=== PATIENT | male | born 1960 | race African-American/Black ===

== ENCOUNTER 2022-05-21 10:41 | Emergency (ER) | payer OTHER ==
[~2022-05-21] VITALS: Ht 175.3 cm; Wt 74.7 kg
[~2022-05-21 10:41] MED LIST: PAIN325T; PERC5TAB8; PERC7.5T8
[2022-05-21 10:42] VITALS: BP 119/68
[2022-05-21 11:27] LABS: BASO % 0.7 % (0.0-1.0); EOS % 0.9 % (0.0-3.0); HEMATOCRIT 46.1 % (42.0-52.0); HEMOGLOBIN 14.9 g/dl (13.5-17.5); LYMPH # 2.2 10^3/uL (1.5-5.0); LYMPH % 50.2 % (24.0-44.0); MEAN CORPUSCULAR HEMOGLOBIN 30.9 pg (27.0-33.0); MEAN CORPUSCULAR HGB CONC 32.3 g/dl (32.0-36.5); MEAN CORPUSCULAR VOLUME 95.6 fl (80.0-96.0); MONO # 0.4 10^3/uL (0.0-0.8); MONO % 9.3 % (2.0-8.0); NEUTROPHILS # 1.7 10^3/uL (1.5-8.5); NEUTROPHILS % 38.9 % (36.0-66.0); PLATELET COUNT, AUTOMATED 208 10^3/uL (150-450); RED BLOOD COUNT 4.82 10^6/uL (4.30-6.10); WHITE BLOOD COUNT 4.4 10^3/uL (4.0-10.0)
[2022-05-21 12:02] LABS: RSV AMPLIFICATION NEGATIVE (NEGATIVE)
[2022-05-21 12:16] LABS: CK-MB VALUE MASS 5.3 NG/ML (<3.6); MB/CK RELATIVE INDEX 1.76 (< OR =4)
[2022-05-21 12:25] LABS: ALBUMIN 3.5 GM/DL (3.2-5.2); ALT/SGPT 25 U/L (12-78); BILIRUBIN,DIRECT 0.3 MG/DL (0.0-0.2); BILIRUBIN,TOTAL 0.8 MG/DL (0.2-1.0); BLOOD UREA NITROGEN 14 MG/DL (7-18); CALCIUM LEVEL 9.2 MG/DL (8.5-10.1); CARBON DIOXIDE LEVEL 29 MEQ/L (21-32); CHLORIDE LEVEL 106 MEQ/L (98-107); CREATININE FOR GFR 1.36 MG/DL (0.70-1.30); GLOMERULAR FILTRATION RATE > 60.0 (>56); GLUCOSE, FASTING 98 MG/DL (70-100); NT-PRO BNP 70 PG/ML (<125); POTASSIUM SERUM 3.9 MEQ/L (3.5-5.1); SODIUM LEVEL 140 MEQ/L (136-145); THYROID STIMULATING HORMONE 0.682 uIU/ML (0.358-3.740); THYROXINE (T4) 7.2 UG/DL (4.5-12.0); TOTAL PROTEIN 6.6 GM/DL (6.4-8.2)
== END 2022-05-21 14:16 | disposition left against medical advice (07) ==
LOC: M ED 10:41
DX: Z53.21 Procedure and treatment not carried out due to patient leaving prior to being seen by health care provider (principal)

== ENCOUNTER 2022-06-24 10:59 | Emergency (ER) | payer OTHER ==
[~2022-06-24] VITALS: Ht 175.3 cm; Wt 83.2 kg
[2022-06-24 12:17] LABS: BASO % 0.7 % (0.0-1.0); EOS # 0.1 10^3/uL (0.0-0.5); EOS % 1.4 % (0.0-3.0); HEMATOCRIT 45.6 % (42.0-52.0); HEMOGLOBIN 14.7 g/dl (13.5-17.5); LYMPH # 1.9 10^3/uL (1.5-5.0); LYMPH % 44.1 % (24.0-44.0); MEAN CORPUSCULAR HEMOGLOBIN 31.4 pg (27.0-33.0); MEAN CORPUSCULAR HGB CONC 32.2 g/dl (32.0-36.5); MEAN CORPUSCULAR VOLUME 97.4 fl (80.0-96.0); MONO # 0.5 10^3/uL (0.0-0.8); MONO % 10.3 % (2.0-8.0); NEUTROPHILS # 1.9 10^3/uL (1.5-8.5); NEUTROPHILS % 43.3 % (36.0-66.0); PLATELET COUNT, AUTOMATED 218 10^3/uL (150-450); RED BLOOD COUNT 4.68 10^6/uL (4.30-6.10); WHITE BLOOD COUNT 4.4 10^3/uL (4.0-10.0)
[2022-06-24] MEDS: COMBIVENT RESPIMAT 100-20MCG INHALER 4GM INH SCH ×3 (12:51→13:13)
[2022-06-24 12:56] LABS: ALBUMIN 3.5 GM/DL (3.2-5.2); ALT/SGPT 27 U/L (12-78); BILIRUBIN,DIRECT 0.1 MG/DL (0.0-0.2); BILIRUBIN,TOTAL 0.4 MG/DL (0.2-1.0); BLOOD UREA NITROGEN 18 MG/DL (7-18); CALCIUM LEVEL 9.1 MG/DL (8.5-10.1); CARBON DIOXIDE LEVEL 32 MEQ/L (21-32); CHLORIDE LEVEL 104 MEQ/L (98-107); CREATININE FOR GFR 0.92 MG/DL (0.70-1.30); GLOMERULAR FILTRATION RATE > 60.0 (>56); GLUCOSE, FASTING 88 MG/DL (70-100); POTASSIUM SERUM 4.3 MEQ/L (3.5-5.1); SODIUM LEVEL 139 MEQ/L (136-145); TOTAL PROTEIN 6.4 GM/DL (6.4-8.2)
[2022-06-24 13:02] LABS: CK-MB VALUE MASS 5.8 NG/ML (<3.6); MB/CK RELATIVE INDEX 2.58 (< OR =4)
[2022-06-24] MEDS ORDERED: ISOVUE-370 76% 100ML VIAL As Ordered ONE (13:09)
[2022-06-24] MEDS ORDERED: PRED10TA2 PO (14:19)
[2022-06-24] MEDS ORDERED: VENTAER INH (14:19)
[2022-06-24 14:21] VITALS: BP 139/92
== END 2022-06-24 14:37 | disposition home or self-care (01) ==
LOC: M ED 11:44
DX: J44.1 Chronic obstructive pulmonary disease with (acute) exacerbation (principal); F17.210 Nicotine dependence, cigarettes, uncomplicated; Z87.828 Personal history of other (healed) physical injury and trauma; Z98.890 Other specified postprocedural states

== ENCOUNTER → 2022-08-02 | Outpatient (REF) | payer OTHER ==
[~2022-08-02] MED LIST changes: +PRED10TA2 PO; +VENTAER INH
[2022-08-02 13:49] LABS: BASO % 0.7 % (0.0-1.0); EOS # 0.1 10^3/uL (0.0-0.5); EOS % 1.8 % (0.0-3.0); HEMATOCRIT 46.5 % (42.0-52.0); HEMOGLOBIN 14.8 g/dl (13.5-17.5); LYMPH # 1.6 10^3/uL (1.5-5.0); LYMPH % 34.8 % (24.0-44.0); MEAN CORPUSCULAR HEMOGLOBIN 30.8 pg (27.0-33.0); MEAN CORPUSCULAR HGB CONC 31.8 g/dl (32.0-36.5); MEAN CORPUSCULAR VOLUME 96.7 fl (80.0-96.0); MONO # 0.7 10^3/uL (0.0-0.8); MONO % 14.8 % (2.0-8.0); NEUTROPHILS # 2.1 10^3/uL (1.5-8.5); NEUTROPHILS % 47.7 % (36.0-66.0); PLATELET COUNT, AUTOMATED 235 10^3/uL (150-450); RED BLOOD COUNT 4.81 10^6/uL (4.30-6.10); WHITE BLOOD COUNT 4.5 10^3/uL (4.0-10.0)
[2022-08-02 14:12] LABS: HEMOGLOBIN A1c 5.2 % (4.0-6.0)
[2022-08-02 14:23] LABS: TOTAL 25(OH) VITAMIN D 10.8 NG/ML (20.0-100.0)
[2022-08-02 14:24] LABS: ALBUMIN 3.7 G/DL (3.2-5.2); ALKALINE PHOSPHATASE 95 U/L (46-116); ALT/SGPT 18 U/L (7.0-40); AST/SGOT 25 U/L (<34); BILIRUBIN,TOTAL 0.5 MG/DL (0.3-1.2); BLOOD UREA NITROGEN 10 MG/DL (9-23); CALCIUM LEVEL 9.3 MG/DL (8.5-10.1); CARBON DIOXIDE LEVEL 29 MMOL/L (20-31); CHLORIDE LEVEL 101 MMOL/L (98-107); CHOLESTEROL LEVEL 160 MG/DL (<200); CREATININE FOR GFR 0.77 MG/DL (0.70-1.30); GLOMERULAR FILTRATION RATE > 60.0 (>56); GLUCOSE, FASTING 69 MG/DL (60-100); HDL CHOLESTEROL 59.1 MG/DL (>40); LDL CHOLESTEROL 87.5 MG/DL (<100); NON-HDL-C 101 MG/DL; POTASSIUM SERUM 4.4 MMOL/L (3.5-5.1); SODIUM LEVEL 140 MMOL/L (136-145); TOTAL PROTEIN 6.4 G/DL (5.7-8.2); TRIGLYCERIDES LEVEL 67 MG/DL (<150)
== END ==
LOC: M LAB REF 12:21
PROVIDERS: ATTEND Nurse Practitioner Family
DX: R06.00 Dyspnea, unspecified (principal); Z13.228 Encounter for screening for other metabolic disorders

== ENCOUNTER 2023-01-22 06:20 | Emergency (ER) | payer OTHER ==
[~2023-01-22] VITALS: Ht 175.3 cm; Wt 84.0 kg
[~2023-01-22 06:20] MED LIST changes: +AMOX875T2 PO
[2023-01-22] MEDS ORDERED: IPRATROPIUM 0.5MG/ALBUTEROL 2.5MG INH SOL UD 3ML (DUONEB) NEB ONE ×2 (06:25→07:50)
[2023-01-22 06:26] VITALS: TEMP 97.5
[2023-01-22 07:00] LABS: BASO % 0.1 % (0.0-1.0); HEMATOCRIT 48.5 % (42.0-52.0); HEMOGLOBIN 15.6 g/dl (13.5-17.5); LYMPH # 1.8 10^3/uL (1.5-5.0); LYMPH % 12.1 % (24.0-44.0); MEAN CORPUSCULAR HEMOGLOBIN 30.9 pg (27.0-33.0); MEAN CORPUSCULAR HGB CONC 32.2 g/dl (32.0-36.5); MONO # 1.5 10^3/uL (0.0-0.8); MONO % 10.2 % (2.0-8.0); NEUTROPHILS # 11.1 10^3/uL (1.5-8.5); NEUTROPHILS % 76.4 % (36.0-66.0); PLATELET COUNT, AUTOMATED 284 10^3/uL (150-450); RED BLOOD COUNT 5.05 10^6/uL (4.30-6.10); WHITE BLOOD COUNT 14.6 10^3/uL (4.0-10.0)
[2023-01-22 07:24] LABS: ALBUMIN 3.5 G/DL (3.2-5.2); ALKALINE PHOSPHATASE 83 U/L (46-116); ALT/SGPT 43 U/L (7.0-40); AST/SGOT 38 U/L (<34); BILIRUBIN,TOTAL 0.8 MG/DL (0.3-1.2); BLOOD UREA NITROGEN 17 MG/DL (9-23); CALCIUM LEVEL 8.9 MG/DL (8.3-10.6); CARBON DIOXIDE LEVEL 35 MMOL/L (20-31); CHLORIDE LEVEL 99 MMOL/L (98-107); CREATININE FOR GFR 0.91 MG/DL (0.70-1.30); GLOMERULAR FILTRATION RATE > 60.0 (>49); GLUCOSE, FASTING 87 MG/DL (74-106); POTASSIUM SERUM 4.2 MMOL/L (3.5-5.1); SODIUM LEVEL 139 MMOL/L (136-145)
[2023-01-22] MEDS ORDERED: NYSTATIN 500,000U/5ML SUSP UDC PO STA (07:45)
[2023-01-22 08:30] VITALS: BP 148/91
[2023-01-22 08:35] VITALS: O2SAT 93
[2023-01-22] MEDS ORDERED: VENTAER INH (08:41)
[2023-01-22] MEDS ORDERED: PRED20TA PO (08:41)
[2023-01-22] MEDS ORDERED: NYST-38 PO (08:41)
[2023-01-22] MEDS ORDERED: ANOR1AER PO (08:41)
== END 2023-01-22 09:42 | disposition home or self-care (01) ==
LOC: M ED 06:20 → EDUNIT# 06:20 → EDBD 06:20 → M ED 09:42
DX: J44.1 Chronic obstructive pulmonary disease with (acute) exacerbation (principal); R93.1 Abnormal findings on diagnostic imaging of heart and coronary circulation; F17.200 Nicotine dependence, unspecified, uncomplicated

== ENCOUNTER 2023-02-15 03:36 | Emergency (ER) | payer OTHER ==
[~2023-02-15] VITALS: Ht 175.3 cm; Wt 82.9 kg
[~2023-02-15 03:36] MED LIST changes: +ANOR1AER PO; +NYST-38 PO; +PRED20TA PO
[2023-02-15 03:49] VITALS: TEMP 97.1
[2023-02-15] MEDS ORDERED: ALBUTEROL SULFATE 2.5MG/0.5ML INH NEB SOLN INH ONE (04:05)
[2023-02-15] MEDS ORDERED: IPRATROPIUM 0.5MG/ALBUTEROL 2.5MG INH SOL UD 3ML (DUONEB) NEB ONE (04:05)
[2023-02-15] MEDS ORDERED: BREO1INH PO ×2 (04:20→06:27)
[2023-02-15] MEDS ORDERED: ALBU6.7H6 INH ×2 (04:20→06:27)
[2023-02-15 04:29] LABS: BASO % 0.1 % (0.0-1.0); HEMATOCRIT 45.6 % (42.0-52.0); HEMOGLOBIN 14.9 g/dl (13.5-17.5); LYMPH # 0.9 10^3/uL (1.5-5.0); LYMPH % 8.3 % (24.0-44.0); MEAN CORPUSCULAR HEMOGLOBIN 31.3 pg (27.0-33.0); MEAN CORPUSCULAR HGB CONC 32.7 g/dl (32.0-36.5); MEAN CORPUSCULAR VOLUME 95.8 fl (80.0-96.0); MONO # 0.6 10^3/uL (0.0-0.8); MONO % 5.5 % (2.0-8.0); NEUTROPHILS # 9.6 10^3/uL (1.5-8.5); NEUTROPHILS % 85.6 % (36.0-66.0); PLATELET COUNT, AUTOMATED 308 10^3/uL (150-450); RED BLOOD COUNT 4.76 10^6/uL (4.30-6.10); WHITE BLOOD COUNT 11.3 10^3/uL (4.0-10.0)
[2023-02-15 04:44] LABS: ALBUMIN 3.3 G/DL (3.2-5.2); ALKALINE PHOSPHATASE 73 U/L (46-116); ALT/SGPT 37 U/L (7.0-40); AST/SGOT 26 U/L (<34); BILIRUBIN,DIRECT 0.1 MG/DL (<0.4); BILIRUBIN,TOTAL 0.4 MG/DL (0.3-1.2); BLOOD UREA NITROGEN 13 MG/DL (9-23); CALCIUM LEVEL 9.8 MG/DL (8.3-10.6); CARBON DIOXIDE LEVEL 34 MMOL/L (20-31); CHLORIDE LEVEL 101 MMOL/L (98-107); CK-MB VALUE MASS 5.4 NG/ML (<3.6); CREATININE FOR GFR 0.82 MG/DL (0.70-1.30); GLOMERULAR FILTRATION RATE > 60.0 (>49); GLUCOSE, FASTING 89 MG/DL (74-106); POTASSIUM SERUM 4.4 MMOL/L (3.5-5.1); SODIUM LEVEL 139 MMOL/L (136-145); TOTAL PROTEIN 5.9 G/DL (5.7-8.2)
[2023-02-15 04:45] LABS: INR 0.89; PROTHROMBIN TIME 12.2 SECONDS (12.5-14.5)
[2023-02-15 04:46] LABS: THYROID STIMULATING HORMONE 0.821 uIU/ML (0.55-4.78)
[2023-02-15 04:55] LABS: CPK CREATINE PHOSPHOKINASE 145 U/L (46-171); MB/CK RELATIVE INDEX 3.72 (< OR =4)
[2023-02-15 05:58] LABS: CK-MB VALUE MASS 6.2 NG/ML (<3.6)
[2023-02-15 06:00] VITALS: BP 116/61
[2023-02-15 06:00] LABS: MB/CK RELATIVE INDEX 4.66 (< OR =4)
[2023-02-15] MEDS ORDERED: PRED10TA2 PO (06:27)
[2023-02-15 06:30] VITALS: O2SAT 91
== END 2023-02-15 06:50 | disposition home or self-care (01) ==
LOC: M ED 03:36 → MERGE 03:36 → M ED 06:50
DX: J44.1 Chronic obstructive pulmonary disease with (acute) exacerbation (principal); F17.200 Nicotine dependence, unspecified, uncomplicated; Z79.51 Long term (current) use of inhaled steroids

== ENCOUNTER 2023-02-17 12:55 | Emergency (ER) | payer OTHER ==
[~2023-02-17] VITALS: Ht 175.3 cm; Wt 82.2 kg
[~2023-02-17 12:55] MED LIST changes: +ALBU6.7H6 INH; +BREO1INH PO
[2023-02-17 13:06] VITALS: BP 161/91; TEMP 96.9; O2SAT 97
[2023-02-17] MEDS ORDERED: AMOX875T2 (13:19)
[2023-02-17] MEDS ORDERED: predniSONE 20 MG TAB PO ONE (13:20)
[2023-02-17] MEDS ORDERED: PRED20TA PO (13:21)
[2023-02-17] MEDS ORDERED: NEBU1EAC71 MC (13:22)
[2023-02-17] MEDS ORDERED: ALB2.5NEB NEB (13:23)
[2023-02-18] MEDS ORDERED: NYST-38 PO (20:01)
== END 2023-02-17 13:50 | disposition home or self-care (01) ==
LOC: MERGE 13:14 → M ED 13:14
DX: J44.9 Chronic obstructive pulmonary disease, unspecified (principal); F17.200 Nicotine dependence, unspecified, uncomplicated
CPT/HCPCS: 99284; J7512

== ENCOUNTER 2023-02-18 16:02 | Emergency (ER) | payer OTHER ==
[~2023-02-18] VITALS: Ht 175.3 cm; Wt 81.8 kg
[~2023-02-18 16:02] MED LIST changes: +ALB2.5NEB NEB; +AMOX875T2; +NEBU1EAC71 MC
[2023-02-18] MEDS ORDERED: IPRATROPIUM 0.5MG/ALBUTEROL 2.5MG INH SOL UD 3ML (DUONEB) NEB ONE ×2 (16:45→18:20)
[2023-02-18] MEDS ORDERED: NYSTATIN 500,000U/5ML SUSP UDC SS STA (18:20)
[2023-02-18] MEDS ORDERED: NYST-38 PO (20:01)
[2023-02-18 20:19] VITALS: BP 155/78; TEMP 98.2; O2SAT 97
== END 2023-02-18 20:37 | disposition home or self-care (01) ==
LOC: EDBD 16:02 → M ED 16:02
DX: J44.9 Chronic obstructive pulmonary disease, unspecified (principal); B37.0 Candidal stomatitis

== ENCOUNTER 2023-02-26 10:32 | Emergency (ER) | payer OTHER ==
[~2023-02-26] VITALS: Ht 175.3 cm; Wt 84.1 kg
[2023-02-26 10:40] VITALS: BP 162/102; TEMP 97.8; O2SAT 96
[2023-02-26] MEDS ORDERED: dexAMETHasone 20MG/5ML VIAL IV ONE (10:40)
[2023-02-26] MEDS ORDERED: LORazepam 2 MG/ML 1ML VIAL IV STA (10:40)
[2023-02-26] MEDS: IPRATROPIUM 0.5MG/ALBUTEROL 2.5MG INH SOL UD 3ML (DUONEB) NEB SCH ×3 (11:03→11:46)
[2023-02-26 11:21] LABS: ABG HCO3 27.5 MMOL/L (22.0-26.0); ABG O2 SATURATION 89.9 % (95.0-99.0); ABG PARTIAL PRESSURE O2 59.2 mmHg (75.0-100.0); ABG STANDARD HCO3 25.2 MMOL/L. (22.0-26.0); ABG TOTAL CO2 29.1 MMOL/L (23.0-31.0)
[2023-02-26] MEDS ORDERED: PRED10TA2 PO (13:22)
== END 2023-02-26 15:01 | disposition home or self-care (01) ==
LOC: M ED 10:32 → EDBD 10:32 → M ED 15:01
DX: J44.1 Chronic obstructive pulmonary disease with (acute) exacerbation (principal); J44.9 Chronic obstructive pulmonary disease, unspecified; F17.200 Nicotine dependence, unspecified, uncomplicated
CPT/HCPCS: 36600; 82803; 94640; 99284; J1100; J2060

== ENCOUNTER 2023-03-09 00:24 | Emergency (ER) | payer OTHER ==
[~2023-03-09] VITALS: Ht 175.3 cm; Wt 85.9 kg
[2023-03-09 00:29] VITALS: BP 134/85; TEMP 98.6; O2SAT 98
== END 2023-03-09 05:56 | disposition left against medical advice (07) ==
LOC: M ED 00:24
DX: Z53.21 Procedure and treatment not carried out due to patient leaving prior to being seen by health care provider (principal)

== ENCOUNTER 2023-04-08 18:48 | Emergency (ER) | payer OTHER ==
[~2023-04-08] VITALS: Ht 175.3 cm; Wt 84.1 kg
[2023-04-08] MEDS ORDERED: IPRATROPIUM 0.5MG/ALBUTEROL 2.5MG INH SOL UD 3ML (DUONEB) NEB PRN (19:30)
[2023-04-08 19:58] VITALS: TEMP 98.4
[2023-04-08 20:02] LABS: VENOUS BASE EXCESS -2.3 (-2.0-2.0); VENOUS HCO3 25.2 MMOL/L (23.0-27.0); VENOUS O2 SATURATION 94.2 % (60.0-80.0); VENOUS PARTIAL PRESSURE CO2 53.7 mmHg (38.0-50.0); VENOUS PARTIAL PRESSURE O2 77.4 mmHg (30.0-50.0); VENOUS PH 7.289 UNITS (7.330-7.430); VENOUS STANDARD HCO3 22.5 MMOL/L; VENOUS TOTAL CO2 26.8 MMOL/L (24.0-28.0)
[2023-04-08 20:31] LABS: ALKALINE PHOSPHATASE 78 U/L (46-116); ALT/SGPT 21 U/L (7.0-40); AST/SGOT 23 U/L (<34); BILIRUBIN,DIRECT 0.2 MG/DL (<0.4); BILIRUBIN,TOTAL 0.8 MG/DL (0.3-1.2); BLOOD UREA NITROGEN 13 MG/DL (9-23); CALCIUM LEVEL 9.7 MG/DL (8.3-10.6); CARBON DIOXIDE LEVEL 26 MMOL/L (20-31); CHLORIDE LEVEL 104 MMOL/L (98-107); CK-MB VALUE MASS 6.3 NG/ML (<3.6); CREATININE FOR GFR 0.62 MG/DL (0.70-1.30); GLOMERULAR FILTRATION RATE > 60.0 (>49); GLUCOSE, FASTING 84 MG/DL (74-106); POTASSIUM SERUM 4.2 MMOL/L (3.5-5.1); SODIUM LEVEL 142 MMOL/L (136-145)
[2023-04-08 20:34] LABS: THYROID STIMULATING HORMONE 1.196 uIU/ML (0.55-4.78)
[2023-04-08 20:36] LABS: CPK CREATINE PHOSPHOKINASE 238 U/L (46-171); MB/CK RELATIVE INDEX 2.64 (< OR =4)
[2023-04-08 20:39] LABS: ABG BASE EXCESS -3.4 (-2.0-2.0); ABG HCO3 23.3 MMOL/L (22.0-26.0); ABG O2 SATURATION 99.3 % (95.0-99.0); ABG PARTIAL PRESSURE CO2 47.9 mmHg (35.0-45.0); ABG PARTIAL PRESSURE O2 211.6 mmHg (75.0-100.0); ABG STANDARD HCO3 21.7 MMOL/L. (22.0-26.0); ABG TOTAL CO2 24.8 MMOL/L (23.0-31.0); ABG pH (ARTERIAL) 7.305 UNITS (7.350-7.450)
[2023-04-08 20:56] LABS: BASO % 0.5 % (0.0-1.0); EOS % 0.1 % (0.0-3.0); HEMOGLOBIN 14.6 g/dl (13.5-17.5); LYMPH # 0.9 10^3/uL (1.5-5.0); MEAN CORPUSCULAR HEMOGLOBIN 31.1 pg (27.0-33.0); MEAN CORPUSCULAR HGB CONC 31.7 g/dl (32.0-36.5); MEAN CORPUSCULAR VOLUME 97.9 fl (80.0-96.0); MONO # 0.5 10^3/uL (0.0-0.8); MONO % 6.3 % (2.0-8.0); NEUTROPHILS # 7.1 10^3/uL (1.5-8.5); NEUTROPHILS % 82.8 % (36.0-66.0); PLATELET COUNT, AUTOMATED 306 10^3/uL (150-450); WHITE BLOOD COUNT 8.6 10^3/uL (4.0-10.0)
[2023-04-08] MEDS ORDERED: MORPHINE 2 MG/ML 1ML VIAL IV ONE (21:00)
[2023-04-08] MEDS ORDERED: ISOVUE-370 76% 100ML VIAL As Ordered ONE (21:01)
[2023-04-08 21:49] LABS: CK-MB VALUE MASS 7.6 NG/ML (<3.6)
[2023-04-08 21:50] LABS: MB/CK RELATIVE INDEX 3.14 (< OR =4)
[2023-04-08] MEDS ORDERED: HEPARIN DRIP 25,000 UNITS in IV 1 EA IV SCH (22:10)
[2023-04-08] MEDS ORDERED: ASPIRIN 81MG CHEW TABLET PO ONE (22:45)
[2023-04-08 23:35] LABS: INR 1.03; PARTIAL THROMBOPLASTIN TIME 31.5 SECONDS (24.8-34.2); PROTHROMBIN TIME 13.2 SECONDS (12.5-14.5)
[2023-04-09 00:30] VITALS: O2SAT 98
[2023-04-09 00:34] VITALS: BP 92/56
== END 2023-04-09 02:30 | disposition left against medical advice (07) ==
LOC: M ED 18:48 → EDBD 18:48 → M ED 04-09 02:30
DX: I21.4 Non-ST elevation (NSTEMI) myocardial infarction (principal); J44.9 Chronic obstructive pulmonary disease, unspecified; Z53.9 Procedure and treatment not carried out, unspecified reason; M21.372 Foot drop, left foot
CPT/HCPCS: 36600; 71045; 71275; 80048; 80076; 82550; 82553; 82803; 83605; 83880; 84443; 85025; 85610; 85730; 87040; 87486; 87581; 87633; 87798; 93005; 93041; 94640; 94760; 96365; 96366; 96375; 99285; Q9967

== ENCOUNTER 2023-04-17 09:12 | Emergency (ER) | payer OTHER ==
[~2023-04-17] VITALS: Ht 175.3 cm; Wt 84.5 kg
[2023-04-17] MEDS ORDERED: IPRATROPIUM 0.5MG/ALBUTEROL 2.5MG INH SOL UD 3ML (DUONEB) NEB ONE (09:40)
[2023-04-17 09:55] LABS: BASO % 0.8 % (0.0-1.0); EOS # 0.1 10^3/uL (0.0-0.5); EOS % 1.7 % (0.0-3.0); HEMATOCRIT 44.4 % (42.0-52.0); HEMOGLOBIN 13.9 g/dl (13.5-17.5); LYMPH # 1.3 10^3/uL (1.5-5.0); LYMPH % 26.9 % (24.0-44.0); MEAN CORPUSCULAR HEMOGLOBIN 31.2 pg (27.0-33.0); MEAN CORPUSCULAR HGB CONC 31.3 g/dl (32.0-36.5); MEAN CORPUSCULAR VOLUME 99.8 fl (80.0-96.0); MONO # 0.5 10^3/uL (0.0-0.8); MONO % 10.1 % (2.0-8.0); NEUTROPHILS # 2.9 10^3/uL (1.5-8.5); NEUTROPHILS % 60.3 % (36.0-66.0); PLATELET COUNT, AUTOMATED 241 10^3/uL (150-450); RED BLOOD COUNT 4.45 10^6/uL (4.30-6.10); WHITE BLOOD COUNT 4.8 10^3/uL (4.0-10.0)
[2023-04-17 10:05] LABS: ALBUMIN 3.7 G/DL (3.2-5.2); ALKALINE PHOSPHATASE 63 U/L (46-116); ALT/SGPT 23 U/L (7.0-40); AST/SGOT 22 U/L (<34); BILIRUBIN,DIRECT 0.3 MG/DL (<0.4); BILIRUBIN,TOTAL 0.7 MG/DL (0.3-1.2); BLOOD UREA NITROGEN 10 MG/DL (9-23); CALCIUM LEVEL 9.1 MG/DL (8.3-10.6); CARBON DIOXIDE LEVEL 29 MMOL/L (20-31); CHLORIDE LEVEL 106 MMOL/L (98-107); CREATININE FOR GFR 0.69 MG/DL (0.70-1.30); GLOMERULAR FILTRATION RATE > 60.0 (>49); GLUCOSE, FASTING 88 MG/DL (74-106); POTASSIUM SERUM 4.3 MMOL/L (3.5-5.1); SODIUM LEVEL 140 MMOL/L (136-145); TOTAL PROTEIN 6.4 G/DL (5.7-8.2)
[2023-04-17 10:09] LABS: ABG BASE EXCESS -1.9 (-2.0-2.0); ABG O2 SATURATION 95.6 % (95.0-99.0); ABG PARTIAL PRESSURE CO2 44.7 mmHg (35.0-45.0); ABG PARTIAL PRESSURE O2 77.2 mmHg (75.0-100.0); ABG STANDARD HCO3 22.9 MMOL/L. (22.0-26.0); ABG TOTAL CO2 25.3 MMOL/L (23.0-31.0); ABG pH (ARTERIAL) 7.347 UNITS (7.350-7.450)
[2023-04-17 10:32] LABS: RSV AMPLIFICATION NEGATIVE (NEGATIVE)
[2023-04-17 11:12] LABS: CK-MB VALUE MASS 6.6 NG/ML (<3.6)
[2023-04-17 11:16] VITALS: BP 159/74; TEMP 97.8; O2SAT 94
[2023-04-17 11:38] LABS: CPK CREATINE PHOSPHOKINASE 360 U/L (46-171); MB/CK RELATIVE INDEX 1.83 (< OR =4)
[2023-04-17 11:55] LABS: CK-MB VALUE MASS 7.6 NG/ML (<3.6)
[2023-04-17 11:57] LABS: MB/CK RELATIVE INDEX 2.05 (< OR =4)
[2023-04-17] MEDS ORDERED: PRED20TA PO (12:26)
[2023-04-17] MEDS ORDERED: BREO1INH PO (12:27)
[2023-04-17] MEDS ORDERED: ALBU6.7H6 INH (12:27)
== END 2023-04-17 12:47 | disposition home or self-care (01) ==
LOC: EDBD 09:12 → M ED 09:12
DX: J44.1 Chronic obstructive pulmonary disease with (acute) exacerbation (principal); I49.8 Other specified cardiac arrhythmias; J44.9 Chronic obstructive pulmonary disease, unspecified; Z87.891 Personal history of nicotine dependence; Z79.52 Long term (current) use of systemic steroids; Z79.899 Other long term (current) drug therapy

== ENCOUNTER 2023-04-28 01:27 | Emergency (ER) | payer OTHER ==
[2023-04-28] MEDS: IPRATROPIUM 0.5MG/ALBUTEROL 2.5MG INH SOL UD 3ML (DUONEB) NEB PRN ×3 (02:32→03:34)
[2023-04-28 02:35] LABS: BASO % 0.5 % (0.0-1.0); EOS # 0.1 10^3/uL (0.0-0.5); EOS % 0.7 % (0.0-3.0); HEMATOCRIT 47.3 % (42.0-52.0); HEMOGLOBIN 14.8 g/dl (13.5-17.5); LYMPH # 1.9 10^3/uL (1.5-5.0); LYMPH % 21.9 % (24.0-44.0); MEAN CORPUSCULAR HEMOGLOBIN 31.5 pg (27.0-33.0); MEAN CORPUSCULAR HGB CONC 31.3 g/dl (32.0-36.5); MEAN CORPUSCULAR VOLUME 100.6 fl (80.0-96.0); MONO # 0.9 10^3/uL (0.0-0.8); MONO % 10.5 % (2.0-8.0); NEUTROPHILS # 5.6 10^3/uL (1.5-8.5); NEUTROPHILS % 65.8 % (36.0-66.0); PLATELET COUNT, AUTOMATED 222 10^3/uL (150-450); WHITE BLOOD COUNT 8.5 10^3/uL (4.0-10.0)
[2023-04-28] MEDS ORDERED: NYSTATIN 500,000U/5ML SUSP UDC PO STA (02:51)
[2023-04-28 03:01] LABS: ALKALINE PHOSPHATASE 80 U/L (46-116); ALT/SGPT 31 U/L (7.0-40); AST/SGOT 24 U/L (<34); BILIRUBIN,DIRECT 0.2 MG/DL (<0.4); BILIRUBIN,TOTAL 0.7 MG/DL (0.3-1.2); BLOOD UREA NITROGEN 11 MG/DL (9-23); CARBON DIOXIDE LEVEL 34 MMOL/L (20-31); CHLORIDE LEVEL 100 MMOL/L (98-107); CREATININE FOR GFR 0.63 MG/DL (0.70-1.30); GLOMERULAR FILTRATION RATE > 60.0 (>49); GLUCOSE, FASTING 78 MG/DL (74-106); POTASSIUM SERUM 3.7 MMOL/L (3.5-5.1); SODIUM LEVEL 140 MMOL/L (136-145); TOTAL PROTEIN 6.9 G/DL (5.7-8.2)
[2023-04-28 03:03] LABS: THYROID STIMULATING HORMONE 1.144 uIU/ML (0.55-4.78)
[2023-04-28 03:30] VITALS: BP 142/87
[2023-04-28 03:45] VITALS: TEMP 97.6
[2023-04-28 04:00] VITALS: O2SAT 100
[2023-04-28] MEDS ORDERED: NYST-38 PO (04:01)
[2023-04-28] MEDS ORDERED: AZIT500T5 PO (04:03)
[2023-04-28] MEDS ORDERED: PRED20TA PO (04:03)
== END 2023-04-28 04:23 | disposition home or self-care (01) ==
LOC: M ED 01:27 → EDBD 01:27 → M ED 04:23
DX: J98.01 Acute bronchospasm (principal); J44.1 Chronic obstructive pulmonary disease with (acute) exacerbation; B37.0 Candidal stomatitis; I10 Essential (primary) hypertension; Z79.52 Long term (current) use of systemic steroids; Z79.2 Long term (current) use of antibiotics; Z79.899 Other long term (current) drug therapy

== ENCOUNTER 2023-05-23 07:15 | Emergency (ER) | payer OTHER ==
[~2023-05-23] VITALS: Ht 175.3 cm; Wt 88.6 kg
[~2023-05-23 07:15] MED LIST changes: +AZIT500T5 PO; -NEBU1EAC71 MC; +NEBU1EAC80 MC
[2023-05-23] MEDS ORDERED: ERGO500029 (07:31)
[2023-05-23] MEDS ORDERED: BUDE0.5S6 (07:31)
[2023-05-23 07:34] VITALS: BP 168/92; TEMP 96.8; O2SAT 98
[2023-05-23] MEDS ORDERED: BUDE0.5S6 NEB (07:52)
== END 2023-05-23 08:20 | disposition home or self-care (01) ==
LOC: M ED 07:15
DX: J44.9 Chronic obstructive pulmonary disease, unspecified (principal); F41.9 Anxiety disorder, unspecified; Z87.891 Personal history of nicotine dependence; Z79.52 Long term (current) use of systemic steroids; Z79.899 Other long term (current) drug therapy

== ENCOUNTER 2023-07-30 01:33 | Emergency (ER) | payer OTHER ==
[~2023-07-30] VITALS: Ht 175.3 cm; Wt 93.6 kg
[~2023-07-30 01:33] MED LIST changes: +BUDE0.5S6; +BUDE0.5S6 NEB; +ERGO500029
[2023-07-30 02:52] LABS: VENOUS BASE EXCESS 4.1 (-2.0-2.0); VENOUS HCO3 31.7 MMOL/L (23.0-27.0); VENOUS O2 SATURATION 87.8 % (60.0-80.0); VENOUS PARTIAL PRESSURE CO2 58.9 mmHg (38.0-50.0); VENOUS PARTIAL PRESSURE O2 55.6 mmHg (30.0-50.0); VENOUS PH 7.349 UNITS (7.330-7.430); VENOUS STANDARD HCO3 27.9 MMOL/L; VENOUS TOTAL CO2 33.5 MMOL/L (24.0-28.0)
[2023-07-30 02:55] LABS: BASO % 0.4 % (0.0-1.0); EOS # 0.1 10^3/uL (0.0-0.5); EOS % 0.9 % (0.0-3.0); HEMATOCRIT 47.2 % (42.0-52.0); HEMOGLOBIN 15.1 g/dl (13.5-17.5); LYMPH # 1.7 10^3/uL (1.5-5.0); MEAN CORPUSCULAR HEMOGLOBIN 30.8 pg (27.0-33.0); MEAN CORPUSCULAR VOLUME 96.3 fl (80.0-96.0); MONO # 0.6 10^3/uL (0.0-0.8); MONO % 7.5 % (2.0-8.0); NEUTROPHILS # 5.5 10^3/uL (1.5-8.5); NEUTROPHILS % 69.9 % (36.0-66.0); PLATELET COUNT, AUTOMATED 235 10^3/uL (150-450); WHITE BLOOD COUNT 7.8 10^3/uL (4.0-10.0)
[2023-07-30 03:16] LABS: CK-MB VALUE MASS 6.3 NG/ML (<3.6)
[2023-07-30 03:17] LABS: CPK CREATINE PHOSPHOKINASE 393 U/L (46-171)
[2023-07-30 03:18] LABS: ALBUMIN 3.4 G/DL (3.2-5.2); ALKALINE PHOSPHATASE 70 U/L (46-116); ALT/SGPT 36 U/L (7.0-40); AST/SGOT 27 U/L (<34); BILIRUBIN,DIRECT 0.2 MG/DL (<0.4); BILIRUBIN,TOTAL 0.5 MG/DL (0.3-1.2); BLOOD UREA NITROGEN 23 MG/DL (9-23); CALCIUM LEVEL 9.3 MG/DL (8.3-10.6); CARBON DIOXIDE LEVEL 30 MMOL/L (20-31); CHLORIDE LEVEL 105 MMOL/L (98-107); CREATININE FOR GFR 0.91 MG/DL (0.70-1.30); GLOMERULAR FILTRATION RATE > 60.0 (>49); GLUCOSE, FASTING 91 MG/DL (74-106); SODIUM LEVEL 143 MMOL/L (136-145)
[2023-07-30 06:36] LABS: CK-MB VALUE MASS 4.9 NG/ML (<3.6)
[2023-07-30 06:40] LABS: MB/CK RELATIVE INDEX 1.48 (< OR =4)
[2023-07-30] MEDS ORDERED: IPRATROPIUM 0.5MG/ALBUTEROL 2.5MG INH SOL UD 3ML (DUONEB) NEB ONE (07:20)
[2023-07-30] MEDS ORDERED: methylPREDNISolone 125MG 2ML VIAL IV ONE (07:20)
[2023-07-30] MEDS ORDERED: ISOVUE-370 76% 100ML VIAL As Ordered ONE (07:24)
[2023-07-30] MEDS ORDERED: PRED20TA (07:34)
[2023-07-30] MEDS ORDERED: FLUT1BLS8 (07:34)
[2023-07-30 08:59] VITALS: O2SAT 94
[2023-07-30] MEDS ORDERED: PRED20TA PO (09:10)
[2023-07-30] MEDS ORDERED: VENTAER INH (09:11)
[2023-07-30] MEDS ORDERED: ALBU2.5V10 NEB (09:12)
[2023-07-30 09:41] VITALS: BP 152/79; TEMP 96.9; O2SAT 92
== END 2023-07-30 10:02 | disposition home or self-care (01) ==
LOC: M ED 01:33
DX: J44.1 Chronic obstructive pulmonary disease with (acute) exacerbation (principal); I25.2 Old myocardial infarction; F41.9 Anxiety disorder, unspecified; Z87.891 Personal history of nicotine dependence; Z79.52 Long term (current) use of systemic steroids; Z79.899 Other long term (current) drug therapy
CPT/HCPCS: 71045; 71275; 80048; 80076; 82550; 82553; 82803; 83605; 85025; 87040; 87077; 87486; 87581; 87633; 87798; 93005; 93041; 94640; 94760; 96374; 99285; J2930; Q9967

== ENCOUNTER 2023-11-16 18:49 | Emergency (ER) | payer OTHER ==
[~2023-11-16] VITALS: Ht 175.3 cm; Wt 88.6 kg
[~2023-11-16 18:49] MED LIST changes: +ALBU2.5V10 NEB; +FLUT1BLS8; +PRED20TA
[2023-11-16] MEDS ORDERED: COMBAER6 (18:58)
[2023-11-16] MEDS ORDERED: BUDE0.254 (18:58)
[2023-11-16] MEDS ORDERED: VITA1CAP25 (18:58)
[2023-11-16 18:59] VITALS: TEMP 96.7
[2023-11-16 19:36] LABS: VENOUS BASE EXCESS -0.4 (-2.0-2.0); VENOUS HCO3 28.1 MMOL/L (23.0-27.0); VENOUS O2 SATURATION 82.9 % (60.0-80.0); VENOUS PARTIAL PRESSURE CO2 61.4 mmHg (38.0-50.0); VENOUS PARTIAL PRESSURE O2 49.3 mmHg (30.0-50.0); VENOUS PH 7.279 UNITS (7.330-7.430); VENOUS STANDARD HCO3 23.8 MMOL/L
[2023-11-16 19:39] LABS: BASO % 0.5 % (0.0-1.0); EOS # 0.1 10^3/uL (0.0-0.5); EOS % 1.1 % (0.0-3.0); HEMATOCRIT 49.2 % (42.0-52.0); HEMOGLOBIN 15.8 g/dl (13.5-17.5); LYMPH # 1.1 10^3/uL (1.5-5.0); LYMPH % 19.7 % (24.0-44.0); MEAN CORPUSCULAR HEMOGLOBIN 31.3 pg (27.0-33.0); MEAN CORPUSCULAR HGB CONC 32.1 g/dl (32.0-36.5); MEAN CORPUSCULAR VOLUME 97.4 fl (80.0-96.0); MONO # 0.5 10^3/uL (0.0-0.8); MONO % 9.1 % (2.0-8.0); NEUTROPHILS # 3.8 10^3/uL (1.5-8.5); NEUTROPHILS % 69.4 % (36.0-66.0); PLATELET COUNT, AUTOMATED 241 10^3/uL (150-450); RED BLOOD COUNT 5.05 10^6/uL (4.30-6.10); WHITE BLOOD COUNT 5.5 10^3/uL (4.0-10.0)
[2023-11-16 20:12] LABS: ALKALINE PHOSPHATASE 95 U/L (46-116); ALT/SGPT 39 U/L (7.0-40); AST/SGOT 41 U/L (<34); BILIRUBIN,DIRECT 0.2 MG/DL (<0.4); BILIRUBIN,TOTAL 0.5 MG/DL (0.3-1.2); BLOOD UREA NITROGEN 10 MG/DL (9-23); CALCIUM LEVEL 9.5 MG/DL (8.3-10.6); CARBON DIOXIDE LEVEL 29 MMOL/L (20-31); CHLORIDE LEVEL 104 MMOL/L (98-107); CK-MB VALUE MASS 12.6 NG/ML (<3.6); CREATININE FOR GFR 0.81 MG/DL (0.70-1.30); GLOMERULAR FILTRATION RATE > 60.0 (>49); GLUCOSE, FASTING 98 MG/DL (74-106); POTASSIUM SERUM 4.2 MMOL/L (3.5-5.1); SODIUM LEVEL 137 MMOL/L (136-145)
[2023-11-16 20:20] LABS: CPK CREATINE PHOSPHOKINASE 811 U/L (46-171); MB/CK RELATIVE INDEX 1.55 (< OR =4)
[2023-11-16 21:00] VITALS: BP 122/82; O2SAT 95
[2023-11-16 21:12] LABS: CK-MB VALUE MASS 11.2 NG/ML (<3.6)
[2023-11-16 21:16] LABS: MB/CK RELATIVE INDEX 1.59 (< OR =4)
[2023-11-16 21:28] LABS: ABG BASE EXCESS 0.8 (-2.0-2.0); ABG HCO3 27.3 MMOL/L (22.0-26.0); ABG O2 SATURATION 92.9 % (95.0-99.0); ABG PARTIAL PRESSURE CO2 50.3 mmHg (35.0-45.0); ABG PARTIAL PRESSURE O2 65.6 mmHg (75.0-100.0); ABG STANDARD HCO3 25.1 MMOL/L. (22.0-26.0); ABG TOTAL CO2 28.9 MMOL/L (23.0-31.0); ABG pH (ARTERIAL) 7.353 UNITS (7.350-7.450)
[2023-11-16] MEDS ORDERED: COMBAER6 INH (21:58)
[2023-11-16] MEDS ORDERED: BUDE0.254 INH (21:58)
[2023-11-16] MEDS ORDERED: VENTAER INH (21:58)
[2023-11-16] MEDS ORDERED: FLUT1BLS8 INH (21:58)
== END 2023-11-16 22:16 | disposition home or self-care (01) ==
LOC: M ED 18:49
DX: J44.1 Chronic obstructive pulmonary disease with (acute) exacerbation (principal); Z87.891 Personal history of nicotine dependence; Z79.52 Long term (current) use of systemic steroids; Z79.899 Other long term (current) drug therapy

== ENCOUNTER 2023-11-18 12:56 | Emergency (ER) | payer OTHER ==
[~2023-11-18] VITALS: Ht 180.3 cm; Wt 88.6 kg
[~2023-11-18 12:56] MED LIST changes: +BUDE0.254; +BUDE0.254 INH; +COMBAER6; +COMBAER6 INH; +FLUT1BLS8 INH; +VITA1CAP25
[2023-11-18 13:34] LABS: BASO % 0.3 % (0.0-1.0); EOS % 0.4 % (0.0-3.0); HEMATOCRIT 47.8 % (42.0-52.0); HEMOGLOBIN 15.3 g/dl (13.5-17.5); LYMPH # 2.3 10^3/uL (1.5-5.0); LYMPH % 29.4 % (24.0-44.0); MEAN CORPUSCULAR HEMOGLOBIN 31.4 pg (27.0-33.0); MONO # 0.8 10^3/uL (0.0-0.8); MONO % 10.6 % (2.0-8.0); NEUTROPHILS # 4.6 10^3/uL (1.5-8.5); PLATELET COUNT, AUTOMATED 259 10^3/uL (150-450); RED BLOOD COUNT 4.88 10^6/uL (4.30-6.10); WHITE BLOOD COUNT 7.9 10^3/uL (4.0-10.0)
[2023-11-18 13:41] LABS: ABG BASE EXCESS -1.6 (-2.0-2.0); ABG HCO3 25.1 MMOL/L (22.0-26.0); ABG O2 SATURATION 93.2 % (95.0-99.0); ABG PARTIAL PRESSURE CO2 49.8 mmHg (35.0-45.0); ABG PARTIAL PRESSURE O2 70.3 mmHg (75.0-100.0); ABG TOTAL CO2 26.7 MMOL/L (23.0-31.0); ABG pH (ARTERIAL) 7.321 UNITS (7.350-7.450)
[2023-11-18] MEDS: IPRATROPIUM 0.5MG/ALBUTEROL 2.5MG INH SOL UD 3ML (DUONEB) NEB ONE (13:43)
[2023-11-18 14:19] LABS: ALBUMIN 3.9 G/DL (3.2-5.2); ALKALINE PHOSPHATASE 76 U/L (46-116); ALT/SGPT 38 U/L (7.0-40); AST/SGOT 79 U/L (<34); BILIRUBIN,DIRECT 0.1 MG/DL (<0.4); BILIRUBIN,TOTAL 0.5 MG/DL (0.3-1.2); BLOOD UREA NITROGEN 10 MG/DL (9-23); CALCIUM LEVEL 9.5 MG/DL (8.3-10.6); CARBON DIOXIDE LEVEL 34 MMOL/L (20-31); CHLORIDE LEVEL 106 MMOL/L (98-107); CK-MB VALUE MASS 10.7 NG/ML (<3.6); CPK CREATINE PHOSPHOKINASE 671 U/L (46-171); CREATININE FOR GFR 0.85 MG/DL (0.70-1.30); GLOMERULAR FILTRATION RATE > 60.0 (>49); GLUCOSE, FASTING 101 MG/DL (74-106); MB/CK RELATIVE INDEX 1.59 (< OR =4); POTASSIUM SERUM 5.5 MMOL/L (3.5-5.1); SODIUM LEVEL 141 MMOL/L (136-145)
[2023-11-18 15:32] LABS: ABG BASE EXCESS 0.2 (-2.0-2.0); ABG HCO3 26.1 MMOL/L (22.0-26.0); ABG O2 SATURATION 92.7 % (95.0-99.0); ABG PARTIAL PRESSURE CO2 46.8 mmHg (35.0-45.0); ABG STANDARD HCO3 24.5 MMOL/L. (22.0-26.0); ABG TOTAL CO2 27.5 MMOL/L (23.0-31.0); ABG pH (ARTERIAL) 7.364 UNITS (7.350-7.450)
[2023-11-18] MEDS ORDERED: PRED10TA2 PO (15:48)
[2023-11-18 16:00] VITALS: BP 132/73; TEMP 99.8; O2SAT 90
[2023-11-19] MEDS ORDERED: PRED20TA PO (12:28)
== END 2023-11-18 16:14 | disposition home or self-care (01) ==
LOC: M ED 12:56 → EDBD 12:56 → M ED 16:14
DX: J44.1 Chronic obstructive pulmonary disease with (acute) exacerbation (principal); Z87.891 Personal history of nicotine dependence; Z79.899 Other long term (current) drug therapy

== ENCOUNTER 2023-11-18 22:02 | Observation (INO) | payer OTHER ==
[~2023-11-18] VITALS: Ht 177.8 cm; Wt 88.6 kg
[2023-11-18 23:01] LABS: BASO % 0.1 % (0.0-1.0); HEMATOCRIT 46.9 % (42.0-52.0); LYMPH # 0.5 10^3/uL (1.5-5.0); LYMPH % 6.2 % (24.0-44.0); MEAN CORPUSCULAR HEMOGLOBIN 31.1 pg (27.0-33.0); MEAN CORPUSCULAR VOLUME 97.1 fl (80.0-96.0); MONO # 0.4 10^3/uL (0.0-0.8); MONO % 5.2 % (2.0-8.0); NEUTROPHILS # 6.8 10^3/uL (1.5-8.5); NEUTROPHILS % 88.2 % (36.0-66.0); PLATELET COUNT, AUTOMATED 231 10^3/uL (150-450); RED BLOOD COUNT 4.83 10^6/uL (4.30-6.10); WHITE BLOOD COUNT 7.7 10^3/uL (4.0-10.0)
[2023-11-18] MEDS: IPRATROPIUM 0.5MG/ALBUTEROL 2.5MG INH SOL UD 3ML (DUONEB) NEB ONE (23:05)
[2023-11-18 23:28] LABS: ALBUMIN 4.1 G/DL (3.2-5.2); ALKALINE PHOSPHATASE 86 U/L (46-116); ALT/SGPT 37 U/L (7.0-40); AST/SGOT 29 U/L (<34); BILIRUBIN,DIRECT 0.2 MG/DL (<0.4); BILIRUBIN,TOTAL 0.5 MG/DL (0.3-1.2); BLOOD UREA NITROGEN 9 MG/DL (9-23); CALCIUM LEVEL 9.6 MG/DL (8.3-10.6); CARBON DIOXIDE LEVEL 30 MMOL/L (20-31); CHLORIDE LEVEL 104 MMOL/L (98-107); CREATININE FOR GFR 0.72 MG/DL (0.70-1.30); GLOMERULAR FILTRATION RATE > 60.0 (>49); GLUCOSE, FASTING 123 MG/DL (74-106); POTASSIUM SERUM 3.8 MMOL/L (3.5-5.1); SODIUM LEVEL 143 MMOL/L (136-145); TOTAL PROTEIN 6.8 G/DL (5.7-8.2)
[2023-11-18 23:33] LABS: RSV AMPLIFICATION NEGATIVE (NEGATIVE)
[2023-11-19] MEDS ORDERED: MED REC CURRENTLY UNOBTAINABLE XX SCH (00:10)
[2023-11-19] MEDS ORDERED: MAALOX 30 ML SUSP *UDC PO PRN (00:50)
[2023-11-19] MEDS ORDERED: ACETAMINOPHEN TAB 650MG DOSE (2X325MG) PO PRN (00:50)
[2023-11-19] MEDS: AZITHROMYCIN 250MG TABLET PO SCH (01:05)
[2023-11-19] MEDS: guaiFENesin ER TABLET 600 MG TAB PO SCH (01:05)
[2023-11-19] MEDS: methylPREDNISolone 40MG 1ML VIAL IV SCH (01:05)
[2023-11-19] MEDS: IPRATROPIUM 0.5MG/ALBUTEROL 2.5MG INH SOL UD 3ML (DUONEB) NEB SCH (03:12)
[2023-11-19] MEDS: ENOXAPARIN 40MG/0.4ML SYRINGE (J1650 PER 10MG) SC SCH (08:26)
[2023-11-19] MEDS: PANTOPRAZOLE 40MG TAB (PROTONIX) PO SCH (08:27)
[2023-11-19 08:45] LABS: PROCALCITONIN <0.04 ng/ml
[2023-11-19 08:48] LABS: ALBUMIN 3.8 G/DL (3.2-5.2); ALKALINE PHOSPHATASE 81 U/L (46-116); ALT/SGPT 34 U/L (7.0-40); AST/SGOT 26 U/L (<34); BILIRUBIN,TOTAL 0.8 MG/DL (0.3-1.2); BLOOD UREA NITROGEN 8 MG/DL (9-23); CALCIUM LEVEL 9.9 MG/DL (8.3-10.6); CARBON DIOXIDE LEVEL 30 MMOL/L (20-31); CHLORIDE LEVEL 103 MMOL/L (98-107); CREATININE FOR GFR 0.63 MG/DL (0.70-1.30); GLOMERULAR FILTRATION RATE > 60.0 (>49); GLUCOSE, FASTING 107 MG/DL (74-106); POTASSIUM SERUM 4.1 MMOL/L (3.5-5.1); SODIUM LEVEL 141 MMOL/L (136-145); TOTAL PROTEIN 6.5 G/DL (5.7-8.2)
[2023-11-19] MEDS ORDERED: PRED20TA PO (12:28)
[2023-11-19 13:35] VITALS: BP 171/77; TEMP 98.3; O2SAT 96
[2023-11-19] MEDS ORDERED: methylPREDNISolone 125MG 2ML VIAL IV SCH (14:00)
== END 2023-11-19 13:36 | disposition home or self-care (01) ==
LOC: M ED 22:02 → EDBD 22:02 → M ED INP 11-19 00:48
PROVIDERS: ADMIT Preventive Medicine Undersea and Hyperbaric Medicine; ATTEND Preventive Medicine Undersea and Hyperbaric Medicine
DX: J44.1 Chronic obstructive pulmonary disease with (acute) exacerbation (principal); E55.9 Vitamin D deficiency, unspecified; Z87.891 Personal history of nicotine dependence
CPT/HCPCS: 71045; 80048; 80053; 80076; 83880; 84145; 85025; 87631; 93005; 93041; 94640; 94760; 96372; 96374; 99285; J1650; J2919

== ENCOUNTER 2023-12-11 01:59 | Emergency (ER) | payer OTHER ==
[~2023-12-11] VITALS: Ht 175.3 cm; Wt 89.0 kg
[~2023-12-11 01:59] MED LIST changes: -VITA1CAP25; +VITA1CAP25 PO
[2023-12-11] MEDS: KETOROLAC 30 MG/ML 1ML VIAL IV ONE (02:23)
[2023-12-11 03:15] LABS: VENOUS BASE EXCESS -0.6 (-2.0-2.0); VENOUS HCO3 24.9 MMOL/L (23.0-27.0); VENOUS O2 SATURATION 90.8 % (60.0-80.0); VENOUS PARTIAL PRESSURE CO2 43.7 mmHg (38.0-50.0); VENOUS PARTIAL PRESSURE O2 60.8 mmHg (30.0-50.0); VENOUS PH 7.373 UNITS (7.330-7.430); VENOUS STANDARD HCO3 23.8 MMOL/L; VENOUS TOTAL CO2 26.2 MMOL/L (24.0-28.0)
[2023-12-11 03:24] LABS: BASO % 0.5 % (0.0-1.0); EOS # 0.1 10^3/uL (0.0-0.5); EOS % 1.3 % (0.0-3.0); HEMATOCRIT 46.6 % (42.0-52.0); HEMOGLOBIN 15.2 g/dl (13.5-17.5); LYMPH # 1.2 10^3/uL (1.5-5.0); LYMPH % 19.9 % (24.0-44.0); MEAN CORPUSCULAR HGB CONC 32.6 g/dl (32.0-36.5); MEAN CORPUSCULAR VOLUME 94.9 fl (80.0-96.0); MONO # 0.3 10^3/uL (0.0-0.8); MONO % 5.2 % (2.0-8.0); NEUTROPHILS # 4.5 10^3/uL (1.5-8.5); NEUTROPHILS % 72.9 % (36.0-66.0); PLATELET COUNT, AUTOMATED 248 10^3/uL (150-450); RED BLOOD COUNT 4.91 10^6/uL (4.30-6.10); WHITE BLOOD COUNT 6.1 10^3/uL (4.0-10.0)
[2023-12-11] MEDS: IPRATROPIUM 0.5MG/ALBUTEROL 2.5MG INH SOL UD 3ML (DUONEB) NEB ONE (03:40)
[2023-12-11 03:43] LABS: CK-MB VALUE MASS 7.6 NG/ML (<3.6)
[2023-12-11 03:44] LABS: CPK CREATINE PHOSPHOKINASE 376 U/L (46-171); MB/CK RELATIVE INDEX 2.02 (< OR =4)
[2023-12-11 03:45] LABS: ALBUMIN 3.9 G/DL (3.2-5.2); ALKALINE PHOSPHATASE 81 U/L (46-116); ALT/SGPT 32 U/L (7.0-40); AST/SGOT 24 U/L (<34); BILIRUBIN,DIRECT 0.2 MG/DL (<0.4); BILIRUBIN,TOTAL 0.6 MG/DL (0.3-1.2); BLOOD UREA NITROGEN 23 MG/DL (9-23); CALCIUM LEVEL 9.5 MG/DL (8.3-10.6); CARBON DIOXIDE LEVEL 26 MMOL/L (20-31); CHLORIDE LEVEL 105 MMOL/L (98-107); CREATININE FOR GFR 1.11 MG/DL (0.70-1.30); GLOMERULAR FILTRATION RATE > 60.0 (>49); GLUCOSE, FASTING 102 MG/DL (74-106); POTASSIUM SERUM 4.2 MMOL/L (3.5-5.1); SODIUM LEVEL 140 MMOL/L (136-145); TOTAL PROTEIN 6.6 G/DL (5.7-8.2)
[2023-12-11] MEDS: BENZONATATE 100MG CAPSULE PO ONE (05:08)
[2023-12-11 05:19] LABS: MB/CK RELATIVE INDEX 2.06 (< OR =4)
[2023-12-11] MEDS ORDERED: PRED10TA2 (06:11)
[2023-12-11] MEDS ORDERED: IBUP200C25 PO (06:20)
[2023-12-11] MEDS ORDERED: NYST-38 PO (06:20)
[2023-12-11] MEDS ORDERED: PRED20TA PO (06:46)
[2023-12-11] MEDS ORDERED: FLUT1BLS8 INH (06:46)
[2023-12-11] MEDS ORDERED: BUDE0.254 NEB (06:46)
[2023-12-11] MEDS ORDERED: ALBU2.5V10 NEB (06:46)
[2023-12-11 07:25] VITALS: BP 132/87; TEMP 98.1; O2SAT 96
== END 2023-12-11 07:28 | disposition home or self-care (01) ==
LOC: EDBD 01:59 → M ED 01:59
DX: J44.9 Chronic obstructive pulmonary disease, unspecified (principal); Z91.199 Patient's noncompliance with other medical treatment and regimen due to unspecified reason; Z87.891 Personal history of nicotine dependence; Z79.51 Long term (current) use of inhaled steroids; Z79.899 Other long term (current) drug therapy
CPT/HCPCS: 71045; 80048; 80076; 82550; 82553; 82803; 83605; 83880; 84484; 85025; 87040; 87486; 87581; 87633; 87798; 93005; 93041; 94640; 94760; 96374; 99285; J1885

== ENCOUNTER 2023-12-21 23:43 | Emergency (ER) | payer OTHER ==
[~2023-12-21] VITALS: Ht 175.3 cm; Wt 88.6 kg
[~2023-12-21 23:43] MED LIST changes: +BUDE0.254 NEB; +IBUP200C25 PO; +PRED10TA2
[2023-12-21 23:55] VITALS: BP 139/95; TEMP 98.3; O2SAT 94
[2023-12-22] MEDS ORDERED: NYST-38 PO (00:26)
[2023-12-22] MEDS: NYSTATIN 500,000U/5ML SUSP UDC SS ONE (00:34)
== END 2023-12-22 00:44 | disposition home or self-care (01) ==
LOC: M ED 23:43
DX: J44.9 Chronic obstructive pulmonary disease, unspecified (principal); F41.9 Anxiety disorder, unspecified; B37.0 Candidal stomatitis; Z87.891 Personal history of nicotine dependence; Z79.51 Long term (current) use of inhaled steroids; Z79.1 Long term (current) use of non-steroidal anti-inflammatories (NSAID); Z79.52 Long term (current) use of systemic steroids; Z79.899 Other long term (current) drug therapy

== ENCOUNTER → 2023-12-27 | Outpatient (REF) | payer OTHER ==
[~2023-12-27] MED LIST changes: +CLOT10TR; +CLOT10TR PO
[2023-12-27 18:25] LABS: BASO % 0.3 % (0.0-1.0); EOS # 0.1 10^3/uL (0.0-0.5); EOS % 0.7 % (0.0-3.0); HEMATOCRIT 46.4 % (42.0-52.0); HEMOGLOBIN 14.8 g/dl (13.5-17.5); LYMPH # 1.8 10^3/uL (1.5-5.0); LYMPH % 26.3 % (24.0-44.0); MEAN CORPUSCULAR HEMOGLOBIN 31.4 pg (27.0-33.0); MEAN CORPUSCULAR HGB CONC 31.9 g/dl (32.0-36.5); MEAN CORPUSCULAR VOLUME 98.5 fl (80.0-96.0); MONO # 0.7 10^3/uL (0.0-0.8); MONO % 9.7 % (2.0-8.0); NEUTROPHILS # 4.2 10^3/uL (1.5-8.5); NEUTROPHILS % 62.1 % (36.0-66.0); PLATELET COUNT, AUTOMATED 215 10^3/uL (150-450); RED BLOOD COUNT 4.71 10^6/uL (4.30-6.10); WHITE BLOOD COUNT 6.8 10^3/uL (4.0-10.0)
[2023-12-27 18:30] LABS: PSA SCREENING 0.86 NG/ML (< 4.00)
[2023-12-27 18:35] LABS: ALBUMIN 3.4 G/DL (3.2-5.2); ALKALINE PHOSPHATASE 83 U/L (46-116); ALT/SGPT 41 U/L (7.0-40); AST/SGOT 30 U/L (<34); BILIRUBIN,TOTAL 0.5 MG/DL (0.3-1.2); BLOOD UREA NITROGEN 16 MG/DL (9-23); CALCIUM LEVEL 9.4 MG/DL (8.3-10.6); CARBON DIOXIDE LEVEL 32 MMOL/L (20-31); CHLORIDE LEVEL 103 MMOL/L (98-107); CHOLESTEROL LEVEL 214 MG/DL (<200); CHOLESTEROL RISK RATIO 2.84 (<5); CREATININE FOR GFR 0.88 MG/DL (0.70-1.30); GLOMERULAR FILTRATION RATE > 60.0 (>49); GLUCOSE, FASTING 74 MG/DL (74-106); HDL CHOLESTEROL 75.3 MG/DL (>40); LDL CHOLESTEROL 124.9 MG/DL (<100); NON-HDL-C 138.7 MG/DL; POTASSIUM SERUM 4.7 MMOL/L (3.5-5.1); SODIUM LEVEL 141 MMOL/L (136-145); THYROID STIMULATING HORMONE 1.408 uIU/ML (0.55-4.78); TOTAL PROTEIN 6.1 G/DL (5.7-8.2); TRIGLYCERIDES LEVEL 69 MG/DL (<150)
[2023-12-27 18:46] LABS: HEMOGLOBIN A1c 5.4 % (4.0-6.0)
== END ==
LOC: M LAB REF 17:41
PROVIDERS: ATTEND Nurse Practitioner Family
DX: R53.83 Other fatigue (principal); R03.0 Elevated blood-pressure reading, without diagnosis of hypertension; R39.9 Unspecified symptoms and signs involving the genitourinary system; E66.3 Overweight

== ENCOUNTER 2023-12-29 14:02 | Emergency (ER) | payer OTHER ==
[~2023-12-29] VITALS: Ht 175.3 cm; Wt 88.6 kg
[~2023-12-29 14:02] MED LIST changes: -CLOT10TR; -CLOT10TR PO
[2023-12-29] MEDS ORDERED: CLOT10TR (14:14)
[2023-12-29 15:11] LABS: THYROID STIMULATING HORMONE 1.063 uIU/ML (0.55-4.78); THYROXINE (T4) 7.6 UG/DL (4.5-10.9)
[2023-12-29 15:16] LABS: ALBUMIN 3.3 G/DL (3.2-5.2); ALKALINE PHOSPHATASE 77 U/L (46-116); ALT/SGPT 36 U/L (7.0-40); AST/SGOT 28 U/L (<34); BILIRUBIN,DIRECT 0.1 MG/DL (<0.4); BILIRUBIN,TOTAL 0.4 MG/DL (0.3-1.2); BLOOD UREA NITROGEN 25 MG/DL (9-23); CALCIUM LEVEL 9.3 MG/DL (8.3-10.6); CARBON DIOXIDE LEVEL 28 MMOL/L (20-31); CHLORIDE LEVEL 109 MMOL/L (98-107); CREATININE FOR GFR 0.84 MG/DL (0.70-1.30); GLOMERULAR FILTRATION RATE > 60.0 (>49); GLUCOSE, FASTING 104 MG/DL (74-106); POTASSIUM SERUM 4.3 MMOL/L (3.5-5.1); SODIUM LEVEL 142 MMOL/L (136-145); TOTAL PROTEIN 5.9 G/DL (5.7-8.2)
[2023-12-29 15:35] LABS: BASO % 0.3 % (0.0-1.0); EOS % 0.5 % (0.0-3.0); HEMATOCRIT 44.1 % (42.0-52.0); HEMOGLOBIN 14.1 g/dl (13.5-17.5); LYMPH % 13.3 % (24.0-44.0); MEAN CORPUSCULAR HEMOGLOBIN 31.3 pg (27.0-33.0); MEAN CORPUSCULAR VOLUME 97.8 fl (80.0-96.0); MONO # 0.3 10^3/uL (0.0-0.8); MONO % 4.4 % (2.0-8.0); NEUTROPHILS # 6.2 10^3/uL (1.5-8.5); PLATELET COUNT, AUTOMATED 176 10^3/uL (150-450); RED BLOOD COUNT 4.51 10^6/uL (4.30-6.10); WHITE BLOOD COUNT 7.7 10^3/uL (4.0-10.0)
[2023-12-29] MEDS: NYSTATIN 500,000U/5ML SUSP UDC PO ONE (17:30)
[2023-12-29] MEDS ORDERED: CLOT10TR PO (17:30)
[2023-12-29] MEDS: IPRATROPIUM 0.5MG/ALBUTEROL 2.5MG INH SOL UD 3ML (DUONEB) NEB ONE (17:30)
[2023-12-29] MEDS ORDERED: PRED10TA2 PO (17:30)
[2023-12-29 17:36] VITALS: BP 154/95; TEMP 96.1; O2SAT 89
== END 2023-12-29 18:18 | disposition home or self-care (01) ==
LOC: M ED 14:02
DX: J44.1 Chronic obstructive pulmonary disease with (acute) exacerbation (principal); B37.0 Candidal stomatitis

== ENCOUNTER 2024-01-16 09:53 | Emergency (ER) | payer OTHER ==
[~2024-01-16] VITALS: Ht 175.3 cm; Wt 94.4 kg
[~2024-01-16 09:53] MED LIST changes: +CLOT10TR; +CLOT10TR PO
[2024-01-16 10:31] LABS: BASO % 0.4 % (0.0-1.0); EOS # 0.1 10^3/uL (0.0-0.5); EOS % 0.9 % (0.0-3.0); HEMATOCRIT 45.9 % (42.0-52.0); HEMOGLOBIN 15.3 g/dl (13.5-17.5); LYMPH # 1.9 10^3/uL (1.5-5.0); LYMPH % 33.6 % (24.0-44.0); MEAN CORPUSCULAR HEMOGLOBIN 31.3 pg (27.0-33.0); MEAN CORPUSCULAR HGB CONC 33.3 g/dl (32.0-36.5); MEAN CORPUSCULAR VOLUME 93.9 fl (80.0-96.0); MONO # 0.6 10^3/uL (0.0-0.8); MONO % 11.2 % (2.0-8.0); NEUTROPHILS % 53.7 % (36.0-66.0); PLATELET COUNT, AUTOMATED 271 10^3/uL (150-450); RED BLOOD COUNT 4.89 10^6/uL (4.30-6.10); WHITE BLOOD COUNT 5.5 10^3/uL (4.0-10.0)
[2024-01-16 10:57] LABS: CPK CREATINE PHOSPHOKINASE 317 U/L (46-171)
[2024-01-16 10:58] LABS: ALBUMIN 3.4 G/DL (3.2-5.2); ALKALINE PHOSPHATASE 81 U/L (46-116); ALT/SGPT 32 U/L (7.0-40); AST/SGOT 31 U/L (<34); BILIRUBIN,DIRECT 0.1 MG/DL (<0.4); BILIRUBIN,TOTAL 0.4 MG/DL (0.3-1.2); BLOOD UREA NITROGEN 13 MG/DL (9-23); CALCIUM LEVEL 9.8 MG/DL (8.3-10.6); CARBON DIOXIDE LEVEL 31 MMOL/L (20-31); CHLORIDE LEVEL 97 MMOL/L (98-107); CK-MB VALUE MASS 11.9 NG/ML (<3.6); CREATININE FOR GFR 0.96 MG/DL (0.70-1.30); GLOMERULAR FILTRATION RATE > 60.0 (>49); GLUCOSE, FASTING 124 MG/DL (74-106); MB/CK RELATIVE INDEX 3.75 (< OR =4); POTASSIUM SERUM 4.1 MMOL/L (3.5-5.1); SODIUM LEVEL 132 MMOL/L (136-145); TOTAL PROTEIN 6.1 G/DL (5.7-8.2)
[2024-01-16 11:00] LABS: ETHYL ALCOHOL (ETHANOL) < 0.003 % (0.000-0.010)
[2024-01-16 11:02] LABS: SALICYLATE LEVEL < 3.0 MG/DL (<30)
[2024-01-16 11:05] LABS: THYROID STIMULATING HORMONE 1.345 uIU/ML (0.55-4.78)
[2024-01-16] MEDS: IPRATROPIUM 0.5MG/ALBUTEROL 2.5MG INH SOL UD 3ML (DUONEB) NEB ONE (11:27)
[2024-01-16] MEDS: ALBUTEROL SULFATE 2.5MG/0.5ML INH NEB SOLN INH ONE (11:27)
[2024-01-16] MEDS ORDERED: ISOVUE-370 76% 100ML VIAL As Ordered ONE (11:50)
[2024-01-16 12:19] LABS: AMPHETAMINES LEVEL URINE NEGATIVE (NEGATIVE); BARBITURATES URINE NEGATIVE (NEGATIVE); BENZODIAZEPINES URINE NEGATIVE (NEGATIVE); CANNABINOIDS URINE NEGATIVE (NEGATIVE); METHADONE URINE NEGATIVE (NEGATIVE); OPIATES URINE NEGATIVE (NEGATIVE); PHENCYCLIDINE URINE NEGATIVE (NEGATIVE)
[2024-01-16 12:24] LABS: CK-MB VALUE MASS 11.7 NG/ML (<3.6)
[2024-01-16 12:26] LABS: MB/CK RELATIVE INDEX 3.58 (< OR =4)
[2024-01-16 12:28] LABS: COCAINE METABOLITE URINE POSITIVE (NEGATIVE)
[2024-01-16] MEDS: NS 1,000 ML IV ONE (13:36)
[2024-01-16 14:06] LABS: CK-MB VALUE MASS 10.6 NG/ML (<3.6)
[2024-01-16 14:07] LABS: MB/CK RELATIVE INDEX 3.55 (< OR =4)
[2024-01-16] MEDS ORDERED: BUDE0.5S6 INH (14:42)
[2024-01-16] MEDS ORDERED: ALB2.5NEB INH ×2 (14:42)
[2024-01-16] MEDS ORDERED: VENTAER INH ×2 (14:44→15:45)
[2024-01-16] MEDS ORDERED: FLUT1BLS8 INH (14:46)
[2024-01-16] MEDS ORDERED: COMBAER6 INH (14:49)
[2024-01-16] MEDS ORDERED: HOME MED LIST COMPLETE! XX SCH (14:50)
[2024-01-16 16:20] VITALS: BP 156/65; TEMP 96.9; O2SAT 97
== END 2024-01-16 16:40 | disposition home or self-care (01) ==
LOC: EDBD 09:53 → M ED 09:53
DX: F19.10 Other psychoactive substance abuse, uncomplicated (principal); R07.9 Chest pain, unspecified; J44.1 Chronic obstructive pulmonary disease with (acute) exacerbation; F17.200 Nicotine dependence, unspecified, uncomplicated
CPT/HCPCS: 36415; 71045; 71275; 80047; 80048; 80076; 80143; 80307; 82077; 82550; 82553; 83880; 84443; 84484; 85025; 87635; 93005; 93041; 94640; 94760; 99285; Q9967

== ENCOUNTER 2024-01-22 17:14 | Observation (INO) | payer OTHER ==
[~2024-01-22] VITALS: Ht 175.3 cm; Wt 95.4 kg
[~2024-01-22 17:14] MED LIST changes: +ALB2.5NEB INH; +BUDE0.5S6 INH
[2024-01-22] MEDS ORDERED: IPRATROPIUM 0.5MG/ALBUTEROL 2.5MG INH SOL UD 3ML (DUONEB) NEB ONE (17:30)
[2024-01-22] MEDS: ALBUTEROL SULFATE 2.5MG/0.5ML INH NEB SOLN INH ONE (17:36)
[2024-01-22] MEDS: IPRATROPIUM 0.5MG/ALBUTEROL 2.5MG INH SOL UD 3ML (DUONEB) NEB ONE (17:36)
[2024-01-22 17:45] LABS: VENOUS BASE EXCESS 2.9 (-2.0-2.0); VENOUS HCO3 33.3 MMOL/L (23.0-27.0); VENOUS O2 SATURATION 60.9 % (60.0-80.0); VENOUS PARTIAL PRESSURE CO2 78.8 mmHg (38.0-50.0); VENOUS PARTIAL PRESSURE O2 36.7 mmHg (30.0-50.0); VENOUS PH 7.244 UNITS (7.330-7.430); VENOUS TOTAL CO2 35.7 MMOL/L (24.0-28.0)
[2024-01-22 17:53] LABS: BASO % 0.2 % (0.0-1.0); HEMOGLOBIN 15.2 g/dl (13.5-17.5); LYMPH # 1.2 10^3/uL (1.5-5.0); LYMPH % 10.4 % (24.0-44.0); MEAN CORPUSCULAR HEMOGLOBIN 31.2 pg (27.0-33.0); MEAN CORPUSCULAR HGB CONC 31.7 g/dl (32.0-36.5); MEAN CORPUSCULAR VOLUME 98.6 fl (80.0-96.0); MONO # 0.9 10^3/uL (0.0-0.8); MONO % 7.4 % (2.0-8.0); NEUTROPHILS # 9.3 10^3/uL (1.5-8.5); NEUTROPHILS % 80.9 % (36.0-66.0); PLATELET COUNT, AUTOMATED 284 10^3/uL (150-450); RED BLOOD COUNT 4.87 10^6/uL (4.30-6.10); WHITE BLOOD COUNT 11.5 10^3/uL (4.0-10.0)
[2024-01-22 18:16] LABS: CK-MB VALUE MASS 12.5 NG/ML (<3.6)
[2024-01-22 18:17] LABS: ABG BASE EXCESS 0.7 (-2.0-2.0); ABG HCO3 27.6 MMOL/L (22.0-26.0); ABG O2 SATURATION 93.6 % (95.0-99.0); ABG PARTIAL PRESSURE CO2 52.4 mmHg (35.0-45.0); ABG PARTIAL PRESSURE O2 71.8 mmHg (75.0-100.0); ABG TOTAL CO2 29.2 MMOL/L (23.0-31.0); ABG pH (ARTERIAL) 7.339 UNITS (7.350-7.450)
[2024-01-22 18:18] LABS: ALBUMIN 3.5 G/DL (3.2-5.2); ALKALINE PHOSPHATASE 82 U/L (46-116); ALT/SGPT 47 U/L (7.0-40); AST/SGOT 25 U/L (<34); BILIRUBIN,DIRECT < 0.1 MG/DL (<0.4); BILIRUBIN,TOTAL 0.3 MG/DL (0.3-1.2); BLOOD UREA NITROGEN 10 MG/DL (9-23); CALCIUM LEVEL 9.8 MG/DL (8.3-10.6); CARBON DIOXIDE LEVEL 34 MMOL/L (20-31); CHLORIDE LEVEL 103 MMOL/L (98-107); CREATININE FOR GFR 0.75 MG/DL (0.70-1.30); GLOMERULAR FILTRATION RATE > 60.0 (>49); GLUCOSE, FASTING 91 MG/DL (74-106); POTASSIUM SERUM 4.2 MMOL/L (3.5-5.1); SODIUM LEVEL 142 MMOL/L (136-145); TOTAL PROTEIN 6.5 G/DL (5.7-8.2)
[2024-01-22 18:20] LABS: THYROID STIMULATING HORMONE 0.629 uIU/ML (0.55-4.78); THYROXINE (T4) 5.8 UG/DL (4.5-10.9)
[2024-01-22 18:21] LABS: CPK CREATINE PHOSPHOKINASE 304 U/L (46-171); MB/CK RELATIVE INDEX 4.11 (< OR =4)
[2024-01-22 18:25] LABS: MONO SCRN NEGATIVE (NEGATIVE)
[2024-01-22 19:27] LABS: MB/CK RELATIVE INDEX 4.15 (< OR =4)
[2024-01-22 20:16] LABS: C REACTIVE PROTEIN QUANTITATIV < 0.40 MG/DL (<1.0)
[2024-01-22] MEDS: IPRATROPIUM 0.5MG/ALBUTEROL 2.5MG INH SOL UD 3ML (DUONEB) NEB SCH (20:21)
[2024-01-22 20:25] LABS: PROCALCITONIN <0.04 ng/ml
[2024-01-22 20:44] VITALS: O2SAT 89
[2024-01-22 21:38] VITALS: BP 132/85; TEMP 98.1; O2SAT 96
[2024-01-22] MEDS ORDERED: PRED20TA PO (22:53)
[2024-01-22] MEDS ORDERED: DULO1CAP5 PO (22:53)
[2024-01-22] MEDS ORDERED: HOME MED LIST COMPLETE! XX SCH (23:15)
[2024-01-22] MEDS: guaiFENesin ER TABLET 600 MG TAB PO SCH (23:57)
[2024-01-23] MEDS: SYMBICORT 160/4.5MCG INHALER 6GM INH SCH (01:46)
[2024-01-23 04:10] VITALS: BP 107/64; TEMP 97.5; O2SAT 94
[2024-01-23] MEDS: CEPACOL LOZENGE PO PRN (04:59)
[2024-01-23 06:03] LABS: ABG HCO3 30.3 MMOL/L (22.0-26.0); ABG O2 SATURATION 95.9 % (95.0-99.0); ABG PARTIAL PRESSURE CO2 46.9 mmHg (35.0-45.0); ABG PARTIAL PRESSURE O2 81.1 mmHg (75.0-100.0); ABG STANDARD HCO3 28.9 MMOL/L. (22.0-26.0); ABG TOTAL CO2 31.7 MMOL/L (23.0-31.0); ABG pH (ARTERIAL) 7.428 UNITS (7.350-7.450)
[2024-01-23] MEDS: TIOTROPIUM INHALER/CAPSULE (SPIRIVA) INH SCH (07:47)
[2024-01-23] MEDS: predniSONE 20 MG TAB PO SCH (08:50)
[2024-01-23] MEDS: ENOXAPARIN 40MG/0.4ML SYRINGE (J1650 PER 10MG) SC SCH (08:50)
[2024-01-23] MEDS: DULoxetine 30MG CAPSULE (CYMBALTA) PO SCH (09:52)
[2024-01-23] MEDS: AZITHROMYCIN 250MG TABLET PO SCH (09:52)
[2024-01-23] MEDS: IPRATROPIUM 0.5MG/ALBUTEROL 2.5MG INH SOL UD 3ML (DUONEB) NEB PRN (10:02)
[2024-01-23] MEDS: IPRATROPIUM 0.5MG/ALBUTEROL 2.5MG INH SOL UD 3ML (DUONEB) NEB SCH (11:27)
[2024-01-23 12:00] VITALS: BP 142/94; TEMP 97.3; O2SAT 96
[2024-01-23] MEDS: NYSTATIN 500,000U/5ML SUSP UDC SS SCH (12:36)
[2024-01-23] MEDS: FLUCONAZOLE 100 MG TAB PO SCH (12:36)
[2024-01-23] MEDS: FUROSEMIDE 40MG/4ML VIAL IV ONE (14:26)
[2024-01-23] MEDS: ACETAMINOPHEN TAB 650MG DOSE (2X325MG) PO PRN (17:27)
[2024-01-23] MEDS: KETOROLAC 30 MG/ML 1ML VIAL IV PRN (17:27)
[2024-01-23 22:00] VITALS: BP 136/84; TEMP 97.9; O2SAT 97
[2024-01-24 02:51] VITALS: O2SAT 93
[2024-01-24 04:00] VITALS: BP 117/70; TEMP 97.9; O2SAT 96
[2024-01-24 06:29] LABS: HEMATOCRIT 45.3 % (42.0-52.0); HEMOGLOBIN 14.4 g/dl (13.5-17.5); LYMPH % 15.7 % (24.0-44.0); MEAN CORPUSCULAR HEMOGLOBIN 30.9 pg (27.0-33.0); MEAN CORPUSCULAR HGB CONC 31.8 g/dl (32.0-36.5); MEAN CORPUSCULAR VOLUME 97.2 fl (80.0-96.0); MONO % 7.7 % (2.0-8.0); NEUTROPHILS # 9.5 10^3/uL (1.5-8.5); NEUTROPHILS % 75.6 % (36.0-66.0); PLATELET COUNT, AUTOMATED 243 10^3/uL (150-450); RED BLOOD COUNT 4.66 10^6/uL (4.30-6.10); WHITE BLOOD COUNT 12.6 10^3/uL (4.0-10.0)
[2024-01-24 07:21] LABS: BLOOD UREA NITROGEN 20 MG/DL (9-23); CARBON DIOXIDE LEVEL 38 MMOL/L (20-31); CHLORIDE LEVEL 98 MMOL/L (98-107); CREATININE FOR GFR 0.94 MG/DL (0.70-1.30); GLOMERULAR FILTRATION RATE > 60.0 (>49); GLUCOSE, FASTING 83 MG/DL (74-106); POTASSIUM SERUM 4.5 MMOL/L (3.5-5.1); SODIUM LEVEL 139 MMOL/L (136-145)
[2024-01-24] MEDS ORDERED: FLUT1BLS8 INH (10:19)
[2024-01-24] MEDS ORDERED: PRED10TA2 PO (10:19)
[2024-01-24] MEDS ORDERED: DOXY-440 PO (10:19)
[2024-01-24] MEDS ORDERED: NYST-38 PO (10:19)
[2024-01-24] MEDS ORDERED: DIFL200T PO (10:19)
[2024-01-24 12:00] VITALS: BP 141/90; TEMP 97.9; O2SAT 93
[2024-01-24] MEDS ORDERED: LASI40TA9 PO (12:07)
== END 2024-01-24 13:26 | disposition home or self-care (01) ==
LOC: M ED 17:14 → EDBD 17:14 → M ED INP 19:48 → M MSPAV 21:25
PROVIDERS: ADMIT Internal Medicine; ATTEND Internal Medicine Nephrology
DX: J44.1 Chronic obstructive pulmonary disease with (acute) exacerbation (principal); B37.0 Candidal stomatitis; I50.33 Acute on chronic diastolic (congestive) heart failure; E55.9 Vitamin D deficiency, unspecified; F41.9 Anxiety disorder, unspecified; I27.0 Primary pulmonary hypertension; E66.9 Obesity, unspecified; Z79.899 Other long term (current) drug therapy; Z87.828 Personal history of other (healed) physical injury and trauma; M21.371 Foot drop, right foot; Z79.51 Long term (current) use of inhaled steroids; Z79.52 Long term (current) use of systemic steroids
CPT/HCPCS: 36415; 36600; 71045; 80047; 80048; 80076; 82550; 82553; 82803; 83605; 83880; 84145; 84436; 84443; 84484; 85025; 86140; 86308; 87040; 87077; 87186; 87486; 87581; 87633; 87798; 87880; 93005; 93041; 94640; 94664; 94760; 96372; 96374; 96375; 99285; J1650; J1885; J1940; J7512

== ENCOUNTER 2024-02-17 06:06 | Emergency (ER) | payer OTHER ==
[~2024-02-17] VITALS: Ht 175.3 cm; Wt 88.6 kg
[~2024-02-17 06:06] MED LIST changes: +DIFL200T PO; +DOXY-440 PO; +DULO1CAP5 PO; +LASI40TA9 PO
[2024-02-17 08:20] VITALS: BP 134/82; TEMP 98; O2SAT 93
== END 2024-02-17 08:26 | disposition home or self-care (01) ==
LOC: M ED 06:06
DX: J44.1 Chronic obstructive pulmonary disease with (acute) exacerbation (principal); F14.10 Cocaine abuse, uncomplicated; F41.1 Generalized anxiety disorder; F17.200 Nicotine dependence, unspecified, uncomplicated; Z86.79 Personal history of other diseases of the circulatory system; Z79.52 Long term (current) use of systemic steroids; Z79.899 Other long term (current) drug therapy

== ENCOUNTER 2024-02-19 03:31 | Emergency (ER) | payer OTHER ==
[~2024-02-19] VITALS: Ht 175.3 cm; Wt 88.6 kg
[2024-02-19 03:41] VITALS: TEMP 97.7
[2024-02-19 04:08] LABS: BASO % 0.2 % (0.0-1.0); EOS # 0.1 10^3/uL (0.0-0.5); EOS % 1.2 % (0.0-3.0); HEMATOCRIT 44.8 % (42.0-52.0); HEMOGLOBIN 14.4 g/dl (13.5-17.5); LYMPH # 2.3 10^3/uL (1.5-5.0); LYMPH % 41.3 % (24.0-44.0); MEAN CORPUSCULAR HGB CONC 32.1 g/dl (32.0-36.5); MEAN CORPUSCULAR VOLUME 96.6 fl (80.0-96.0); MONO # 0.6 10^3/uL (0.0-0.8); MONO % 11.3 % (2.0-8.0); NEUTROPHILS # 2.6 10^3/uL (1.5-8.5); PLATELET COUNT, AUTOMATED 268 10^3/uL (150-450); RED BLOOD COUNT 4.64 10^6/uL (4.30-6.10); WHITE BLOOD COUNT 5.7 10^3/uL (4.0-10.0)
[2024-02-19] MEDS: IPRATROPIUM 0.5MG/ALBUTEROL 2.5MG INH SOL UD 3ML (DUONEB) NEB ONE ×2 (04:13→04:17)
[2024-02-19 04:33] LABS: ALBUMIN 3.8 G/DL (3.2-5.2); ALKALINE PHOSPHATASE 84 U/L (46-116); ALT/SGPT 32 U/L (7.0-40); AST/SGOT 26 U/L (<34); BILIRUBIN,DIRECT 0.2 MG/DL (<0.4); BILIRUBIN,TOTAL 0.8 MG/DL (0.3-1.2); BLOOD UREA NITROGEN 9 MG/DL (9-23); CALCIUM LEVEL 9.6 MG/DL (8.3-10.6); CARBON DIOXIDE LEVEL 33 MMOL/L (20-31); CHLORIDE LEVEL 106 MMOL/L (98-107); CREATININE FOR GFR 1.17 MG/DL (0.70-1.30); GLOMERULAR FILTRATION RATE > 60.0 (>49); GLUCOSE, FASTING 89 MG/DL (74-106); POTASSIUM SERUM 4.3 MMOL/L (3.5-5.1); SODIUM LEVEL 143 MMOL/L (136-145); TOTAL PROTEIN 6.4 G/DL (5.7-8.2)
[2024-02-19] MEDS ORDERED: IPRA0.00 NEB (06:25)
[2024-02-19] MEDS ORDERED: LEVO1TAB40 PO (06:25)
[2024-02-19] MEDS ORDERED: PRED10TA2 PO (06:25)
[2024-02-19] MEDS: NYSTATIN 500,000U/5ML SUSP UDC SS STA (06:26)
[2024-02-19 07:00] VITALS: BP 131/79; O2SAT 94
[2024-02-19] MEDS: LevoFLOXacin 750 MG TABLET PO ONE (07:00)
== END 2024-02-19 07:22 | disposition home or self-care (01) ==
LOC: M ED 03:31
DX: J44.1 Chronic obstructive pulmonary disease with (acute) exacerbation (principal); B37.0 Candidal stomatitis; F32.A Depression, unspecified; F17.200 Nicotine dependence, unspecified, uncomplicated; Z79.52 Long term (current) use of systemic steroids; Z79.899 Other long term (current) drug therapy; Z79.2 Long term (current) use of antibiotics

== ENCOUNTER 2024-02-20 13:26 | Emergency (ER) | payer OTHER ==
[~2024-02-20] VITALS: Ht 175.3 cm; Wt 88.6 kg
[~2024-02-20 13:26] MED LIST changes: +IPRA0.00 NEB; +LEVO1TAB40 PO
[2024-02-20 13:33] VITALS: BP 162/66; TEMP 97.1; O2SAT 100
== END 2024-02-20 16:10 | disposition left against medical advice (07) ==
LOC: EDBD 13:26 → M ED 13:26
DX: Z53.21 Procedure and treatment not carried out due to patient leaving prior to being seen by health care provider (principal)

== ENCOUNTER 2024-03-18 21:47 | Emergency (ER) | payer OTHER ==
[~2024-03-18] VITALS: Ht 175.3 cm; Wt 88.6 kg
[2024-03-18 22:09] VITALS: BP 123/86; TEMP 96.8; O2SAT 92
== END 2024-03-19 00:10 | disposition left against medical advice (07) ==
LOC: M ED 21:47
DX: Z53.21 Procedure and treatment not carried out due to patient leaving prior to being seen by health care provider (principal)

== ENCOUNTER 2024-03-26 06:06 | Emergency (ER) | payer OTHER ==
[~2024-03-26] VITALS: Ht 175.3 cm; Wt 96.0 kg
[2024-03-26 08:33] LABS: BASO % 0.3 % (0.0-1.0); EOS # 0.1 10^3/uL (0.0-0.5); HEMATOCRIT 41.3 % (42.0-52.0); HEMOGLOBIN 13.4 g/dl (13.5-17.5); LYMPH # 1.6 10^3/uL (1.5-5.0); LYMPH % 22.6 % (24.0-44.0); MEAN CORPUSCULAR HEMOGLOBIN 31.5 pg (27.0-33.0); MEAN CORPUSCULAR HGB CONC 32.4 g/dl (32.0-36.5); MEAN CORPUSCULAR VOLUME 97.2 fl (80.0-96.0); MONO # 0.7 10^3/uL (0.0-0.8); MONO % 10.2 % (2.0-8.0); NEUTROPHILS # 4.6 10^3/uL (1.5-8.5); NEUTROPHILS % 65.6 % (36.0-66.0); PLATELET COUNT, AUTOMATED 301 10^3/uL (150-450); RED BLOOD COUNT 4.25 10^6/uL (4.30-6.10)
[2024-03-26 08:59] LABS: CPK CREATINE PHOSPHOKINASE 869 U/L (46-171)
[2024-03-26 09:00] LABS: ALBUMIN 3.6 G/DL (3.2-5.2); ALKALINE PHOSPHATASE 87 U/L (46-116); ALT/SGPT 39 U/L (7.0-40); AST/SGOT 43 U/L (<34); BILIRUBIN,DIRECT 0.2 MG/DL (<0.4); BILIRUBIN,TOTAL 0.6 MG/DL (0.3-1.2); BLOOD UREA NITROGEN 8 MG/DL (9-23); CALCIUM LEVEL 9.4 MG/DL (8.3-10.6); CARBON DIOXIDE LEVEL 32 MMOL/L (20-31); CHLORIDE LEVEL 105 MMOL/L (98-107); CK-MB VALUE MASS 9.5 NG/ML (<3.6); CREATININE FOR GFR 0.73 MG/DL (0.70-1.30); GLOMERULAR FILTRATION RATE > 60.0 (>49); GLUCOSE, FASTING 85 MG/DL (74-106); MB/CK RELATIVE INDEX 1.09 (< OR =4); POTASSIUM SERUM 3.9 MMOL/L (3.5-5.1); SODIUM LEVEL 141 MMOL/L (136-145); TOTAL PROTEIN 6.4 G/DL (5.7-8.2)
[2024-03-26] MEDS: IPRATROPIUM 0.5MG/ALBUTEROL 2.5MG INH SOL UD 3ML (DUONEB) NEB PRN (09:51)
[2024-03-26] MEDS: methylPREDNISolone 125MG 2ML VIAL IV ONE (10:16)
[2024-03-26] MEDS: KETOROLAC 30 MG/ML 1ML VIAL IV ONE (10:16)
[2024-03-26 10:25] LABS: VENOUS BASE EXCESS -0.4 (-2.0-2.0); VENOUS HCO3 25.1 MMOL/L (23.0-27.0); VENOUS O2 SATURATION 88.7 % (60.0-80.0); VENOUS PARTIAL PRESSURE CO2 44.3 mmHg (38.0-50.0); VENOUS PARTIAL PRESSURE O2 57.9 mmHg (30.0-50.0); VENOUS PH 7.371 UNITS (7.330-7.430); VENOUS STANDARD HCO3 23.9 MMOL/L; VENOUS TOTAL CO2 26.5 MMOL/L (24.0-28.0)
[2024-03-26] MEDS: AMPICILLIN SOD/SULBACTAM SOD 3 GM in D5W MINI-BAG PLUS 100 ML IV ONE (10:27)
[2024-03-26] MEDS ORDERED: PRED20TA PO (12:08)
[2024-03-26] MEDS ORDERED: AMOX875T2 PO (12:08)
[2024-03-26] MEDS ORDERED: IPRA0.00 INH (12:08)
[2024-03-26 12:24] VITALS: BP 155/92; TEMP 97.5; O2SAT 93
== END 2024-03-26 12:30 | disposition home or self-care (01) ==
LOC: M ED 06:06
DX: J44.1 Chronic obstructive pulmonary disease with (acute) exacerbation (principal); K04.7 Periapical abscess without sinus; K02.9 Dental caries, unspecified; Z87.891 Personal history of nicotine dependence; Z79.52 Long term (current) use of systemic steroids; Z79.899 Other long term (current) drug therapy
CPT/HCPCS: 71045; 80048; 80076; 82550; 82553; 82803; 84484; 85025; 87486; 87581; 87633; 87798; 93005; 94640; 94760; 96365; 96366; 96375; 99284; J0295; J1885; J2919

== ENCOUNTER 2024-04-13 15:13 | Emergency (ER) | payer OTHER ==
[~2024-04-13] VITALS: Ht 175.3 cm; Wt 86.4 kg
[~2024-04-13 15:13] MED LIST changes: +IPRA0.00 INH
[2024-04-13 15:29] VITALS: BP 180/90; TEMP 97.6; O2SAT 95
== END 2024-04-13 18:23 | disposition left against medical advice (07) ==
LOC: M ED 15:13 → EDBD 15:13 → M ED 18:23
DX: Z53.21 Procedure and treatment not carried out due to patient leaving prior to being seen by health care provider (principal)

== ENCOUNTER 2024-04-14 00:12 | Emergency (ER) | payer OTHER ==
[~2024-04-14] VITALS: Ht 175.3 cm; Wt 86.4 kg
[2024-04-14 00:17] VITALS: BP 150/90; TEMP 97.1; O2SAT 90
[2024-04-15] MEDS ORDERED: NYST-38 PO (11:24)
== END 2024-04-14 05:35 | disposition left against medical advice (07) ==
LOC: M ED 00:12
DX: Z53.21 Procedure and treatment not carried out due to patient leaving prior to being seen by health care provider (principal)

== ENCOUNTER 2024-04-15 09:43 | Emergency (ER) | payer OTHER ==
[~2024-04-15] VITALS: Ht 175.3 cm; Wt 86.4 kg
[2024-04-15] MEDS: dexAMETHasone 4 MG TAB PO ONE (10:38)
[2024-04-15] MEDS: IPRATROPIUM 0.5MG/ALBUTEROL 2.5MG INH SOL UD 3ML (DUONEB) NEB ONE (10:48)
[2024-04-15] MEDS ORDERED: NYST-38 PO (11:24)
[2024-04-15 11:25] VITALS: BP 126/82; TEMP 97.9; O2SAT 95
== END 2024-04-15 11:42 | disposition home or self-care (01) ==
LOC: EDBD 09:43 → M ED 09:43
DX: J45.901 Unspecified asthma with (acute) exacerbation (principal); J68.9 Unspecified respiratory condition due to chemicals, gases, fumes and vapors; J44.9 Chronic obstructive pulmonary disease, unspecified; Z87.891 Personal history of nicotine dependence; Z79.52 Long term (current) use of systemic steroids; Z79.899 Other long term (current) drug therapy

== ENCOUNTER 2024-04-17 23:15 | Emergency (ER) | payer OTHER ==
[2024-04-17 23:45] VITALS: TEMP 98.2
[2024-04-18] MEDS: IPRATROPIUM 0.5MG/ALBUTEROL 2.5MG INH SOL UD 3ML (DUONEB) NEB PRN (01:00)
[2024-04-18 01:25] LABS: BASO # 0.1 10^3/uL (0.0-0.2); BASO % 0.7 % (0.0-1.0); EOS # 0.2 10^3/uL (0.0-0.5); EOS % 2.1 % (0.0-3.0); HEMATOCRIT 44.9 % (42.0-52.0); HEMOGLOBIN 14.1 g/dl (13.5-17.5); LYMPH % 28.5 % (24.0-44.0); MEAN CORPUSCULAR HEMOGLOBIN 31.5 pg (27.0-33.0); MEAN CORPUSCULAR HGB CONC 31.4 g/dl (32.0-36.5); MEAN CORPUSCULAR VOLUME 100.2 fl (80.0-96.0); MONO # 0.7 10^3/uL (0.0-0.8); MONO % 9.3 % (2.0-8.0); NEUTROPHILS # 4.2 10^3/uL (1.5-8.5); NEUTROPHILS % 59.3 % (36.0-66.0); PLATELET COUNT, AUTOMATED 227 10^3/uL (150-450); RED BLOOD COUNT 4.48 10^6/uL (4.30-6.10); WHITE BLOOD COUNT 7.1 10^3/uL (4.0-10.0)
[2024-04-18 01:40] LABS: ALBUMIN 3.7 G/DL (3.2-5.2); ALKALINE PHOSPHATASE 80 U/L (46-116); ALT/SGPT 44 U/L (7.0-40); AST/SGOT 44 U/L (<34); BILIRUBIN,DIRECT 0.1 MG/DL (<0.4); BILIRUBIN,TOTAL 0.4 MG/DL (0.3-1.2); BLOOD UREA NITROGEN 10 MG/DL (9-23); CALCIUM LEVEL 9.1 MG/DL (8.3-10.6); CARBON DIOXIDE LEVEL 31 MMOL/L (20-31); CHLORIDE LEVEL 104 MMOL/L (98-107); CK-MB VALUE MASS 8.7 NG/ML (<3.6); CREATININE FOR GFR 0.79 MG/DL (0.70-1.30); GLOMERULAR FILTRATION RATE > 60.0 (>49); GLUCOSE, FASTING 88 MG/DL (74-106); POTASSIUM SERUM 4.7 MMOL/L (3.5-5.1); SODIUM LEVEL 138 MMOL/L (136-145); TOTAL PROTEIN 6.5 G/DL (5.7-8.2)
[2024-04-18 01:42] LABS: THYROID STIMULATING HORMONE 1.931 uIU/ML (0.55-4.78)
[2024-04-18 01:55] LABS: CPK CREATINE PHOSPHOKINASE 418 U/L (46-171); MB/CK RELATIVE INDEX 2.08 (< OR =4)
[2024-04-18] MEDS: methylPREDNISolone 125MG 2ML VIAL IV ONE (02:12)
[2024-04-18 02:14] LABS: RSV AMPLIFICATION NEGATIVE (NEGATIVE)
[2024-04-18 02:46] VITALS: BP 113/68
[2024-04-18 03:11] LABS: CK-MB VALUE MASS 8.5 NG/ML (<3.6)
[2024-04-18 03:12] LABS: MB/CK RELATIVE INDEX 2.08 (< OR =4)
[2024-04-18 03:16] VITALS: O2SAT 100
[2024-04-19] MEDS ORDERED: PRED20TA PO (08:39)
== END 2024-04-18 03:50 | disposition home or self-care (01) ==
LOC: M ED 23:15
DX: J44.1 Chronic obstructive pulmonary disease with (acute) exacerbation (principal); J45.909 Unspecified asthma, uncomplicated; Z87.891 Personal history of nicotine dependence; Z79.52 Long term (current) use of systemic steroids; Z79.899 Other long term (current) drug therapy
CPT/HCPCS: 36415; 71045; 80048; 80076; 82550; 82553; 84443; 84484; 85025; 85379; 87631; 93005; 93041; 94640; 94760; 99285; J2919

== ENCOUNTER 2024-04-19 04:48 | Emergency (ER) | payer OTHER ==
[~2024-04-19] VITALS: Ht 175.3 cm; Wt 86.4 kg
[2024-04-19] MEDS: ALBUTEROL SULFATE 2.5MG/0.5ML INH NEB SOLN NEB ONE (08:28)
[2024-04-19] MEDS ORDERED: PRED20TA PO (08:39)
[2024-04-19 08:53] VITALS: BP 135/84; TEMP 97.4; O2SAT 99
== END 2024-04-19 09:28 | disposition home or self-care (01) ==
LOC: M ED 04:48
DX: J45.901 Unspecified asthma with (acute) exacerbation (principal); R00.0 Tachycardia, unspecified; Z87.891 Personal history of nicotine dependence; Z79.52 Long term (current) use of systemic steroids; Z79.899 Other long term (current) drug therapy

== ENCOUNTER 2024-05-10 09:29 | Emergency (ER) | payer OTHER ==
[~2024-05-10] VITALS: Ht 175.3 cm; Wt 86.4 kg
[2024-05-10 10:14] VITALS: BP 142/92; TEMP 97; O2SAT 95
== END 2024-05-10 10:49 | disposition home or self-care (01) ==
LOC: EDBD 09:29 → M ED 09:29
DX: F41.9 Anxiety disorder, unspecified (principal); J44.9 Chronic obstructive pulmonary disease, unspecified; J45.909 Unspecified asthma, uncomplicated; F17.200 Nicotine dependence, unspecified, uncomplicated; F19.10 Other psychoactive substance abuse, uncomplicated; Z79.52 Long term (current) use of systemic steroids; Z79.899 Other long term (current) drug therapy

== ENCOUNTER 2024-05-20 11:32 | Emergency (ER) | payer OTHER ==
[~2024-05-20] VITALS: Ht 175.3 cm; Wt 97.5 kg
[2024-05-20] MEDS ORDERED: NYST-38 PO (13:37)
[2024-05-20] MEDS: NYSTATIN 500,000U/5ML SUSP UDC SS ONE (13:48)
[2024-05-20 14:17] VITALS: BP 156/71; TEMP 97.8; O2SAT 99
[2024-05-20] MEDS ORDERED: NYSTATIN 500,000U/5ML SUSP UDC PO SCH (17:00)
== END 2024-05-20 14:19 | disposition home or self-care (01) ==
LOC: M ED 11:32
DX: B37.0 Candidal stomatitis (principal); J44.9 Chronic obstructive pulmonary disease, unspecified; F19.10 Other psychoactive substance abuse, uncomplicated; F41.9 Anxiety disorder, unspecified; F10.10 Alcohol abuse, uncomplicated; Z86.79 Personal history of other diseases of the circulatory system; Z87.891 Personal history of nicotine dependence; Z76.0 Encounter for issue of repeat prescription

== ENCOUNTER 2024-05-26 11:20 | Emergency (ER) | payer OTHER ==
[~2024-05-26] VITALS: Ht 175.3 cm; Wt 88.4 kg
[2024-05-26] MEDS ORDERED: methylPREDNISolone 125MG 2ML VIAL IV ONE (12:10)
[2024-05-26] MEDS: IPRATROPIUM 0.5MG/ALBUTEROL 2.5MG INH SOL UD 3ML (DUONEB) NEB PRN (12:42)
[2024-05-26] MEDS ORDERED: NYST-38 PO (13:55)
[2024-05-26 14:08] VITALS: BP 138/88; TEMP 97.5; O2SAT 94
== END 2024-05-26 14:20 | disposition home or self-care (01) ==
LOC: EDBD 11:20 → M ED 11:20
DX: R06.02 Shortness of breath (principal); I25.2 Old myocardial infarction; J44.9 Chronic obstructive pulmonary disease, unspecified; Z86.79 Personal history of other diseases of the circulatory system; Z87.891 Personal history of nicotine dependence; Z79.52 Long term (current) use of systemic steroids; Z79.899 Other long term (current) drug therapy

== ENCOUNTER 2024-05-30 11:45 | Emergency (ER) | payer OTHER ==
[~2024-05-30] VITALS: Ht 175.3 cm; Wt 88.6 kg
[2024-05-30 11:57] VITALS: BP 171/90; TEMP 97.2; O2SAT 94
[2024-05-30] MEDS ORDERED: PENI500T PO (13:25)
== END 2024-05-30 13:37 | disposition home or self-care (01) ==
LOC: EDBD 11:45 → M ED 11:45
DX: K02.9 Dental caries, unspecified (principal); K04.7 Periapical abscess without sinus; J44.9 Chronic obstructive pulmonary disease, unspecified; J45.909 Unspecified asthma, uncomplicated; Z79.52 Long term (current) use of systemic steroids; Z79.2 Long term (current) use of antibiotics; Z79.899 Other long term (current) drug therapy

== ENCOUNTER → 2024-07-06 | Outpatient (REF) | payer OTHER ==
[~2024-07-06] MED LIST changes: +PENI500T PO
[2024-07-06 17:56] LABS: ALBUMIN 3.7 G/DL (3.2-5.2); ALKALINE PHOSPHATASE 90 U/L (40-129); ALT/SGPT 32 U/L (7.0-40); AST/SGOT 31 U/L (<34); BILIRUBIN,DIRECT 0.3 MG/DL (<0.4); BILIRUBIN,TOTAL 0.8 MG/DL (0.3-1.2); BLOOD UREA NITROGEN 15 MG/DL (9-23); CALCIUM LEVEL 9.9 MG/DL (8.3-10.6); CARBON DIOXIDE LEVEL 28 MMOL/L (20-31); CHLORIDE LEVEL 105 MMOL/L (98-107); CHOLESTEROL LEVEL 168 MG/DL (<200); CHOLESTEROL RISK RATIO 2.51 (<5); CREATININE FOR GFR 1.03 MG/DL (0.70-1.30); GLOMERULAR FILTRATION RATE > 60.0 (>49); GLUCOSE, FASTING 67 MG/DL (74-106); HDL CHOLESTEROL 66.9 MG/DL (>40); LDL CHOLESTEROL 82.7 MG/DL (<100); NON-HDL-C 101.1 MG/DL; POTASSIUM SERUM 4.5 MMOL/L (3.5-5.1); SODIUM LEVEL 140 MMOL/L (136-145); TOTAL PROTEIN 6.8 G/DL (5.7-8.2); TRIGLYCERIDES LEVEL 92 MG/DL (<150)
== END ==
LOC: M LAB REF 16:33
PROVIDERS: ATTEND Family Medicine Addiction Medicine
DX: I50.9 Heart failure, unspecified (principal); E78.2 Mixed hyperlipidemia; Z11.9 Encounter for screening for infectious and parasitic diseases, unspecified

== ENCOUNTER 2024-08-09 10:16 | Emergency (ER) | payer OTHER ==
[~2024-08-09] VITALS: Ht 175.3 cm; Wt 92.9 kg
[2024-08-09] MEDS: ACETAMINOPHEN 500 MG TAB PO ONE (12:05)
[2024-08-09] MEDS: PIPERACILLIN/TAZOBACTAM SOD 4.5 GM in DEXTROSE 5% (D5W) ADV/MINI-BAG 50 ML IV ONE (13:30)
[2024-08-09 13:56] LABS: BASO % 0.5 % (0.0-1.0); EOS # 0.1 10^3/uL (0.0-0.5); HEMATOCRIT 44.1 % (42.0-52.0); HEMOGLOBIN 14.7 g/dl (13.5-17.5); LYMPH # 2.2 10^3/uL (1.5-5.0); MEAN CORPUSCULAR HEMOGLOBIN 30.6 pg (27.0-33.0); MEAN CORPUSCULAR HGB CONC 33.3 g/dl (32.0-36.5); MEAN CORPUSCULAR VOLUME 91.7 fl (80.0-96.0); MONO % 11.4 % (2.0-8.0); NEUTROPHILS # 5.1 10^3/uL (1.5-8.5); NEUTROPHILS % 60.9 % (36.0-66.0); PLATELET COUNT, AUTOMATED 260 10^3/uL (150-450); RED BLOOD COUNT 4.81 10^6/uL (4.30-6.10); WHITE BLOOD COUNT 8.4 10^3/uL (4.0-10.0)
[2024-08-09] MEDS: IPRATROPIUM 0.5MG/ALBUTEROL 2.5MG INH SOL UD 3ML (DUONEB) NEB ONE (14:15)
[2024-08-09 14:21] LABS: ALKALINE PHOSPHATASE 104 U/L (40-129); ALT/SGPT 27 U/L (7.0-40); AST/SGOT 41 U/L (<34); BILIRUBIN,DIRECT 0.5 MG/DL (<0.4); BILIRUBIN,TOTAL 1.6 MG/DL (0.3-1.2); BLOOD UREA NITROGEN 21 MG/DL (9-23); CALCIUM LEVEL 10.4 MG/DL (8.3-10.6); CARBON DIOXIDE LEVEL 27 MMOL/L (20-31); CHLORIDE LEVEL 96 MMOL/L (98-107); CREATININE FOR GFR 0.98 MG/DL (0.70-1.30); GLOMERULAR FILTRATION RATE > 60.0 (>49); GLUCOSE, FASTING 92 MG/DL (74-106); MAGNESIUM LEVEL 1.9 MG/DL (1.8-2.4); POTASSIUM SERUM 3.7 MMOL/L (3.5-5.1); SODIUM LEVEL 135 MMOL/L (136-145); TOTAL PROTEIN 7.3 G/DL (5.7-8.2)
[2024-08-09] MEDS ORDERED: ISOVUE-370 76% 100ML VIAL As Ordered ONE (14:45)
[2024-08-09 15:14] VITALS: BP 124/77; TEMP 97.8; O2SAT 94
[2024-08-09] MEDS ORDERED: LEVO1TAB40 PO (16:07)
[2024-08-09] MEDS ORDERED: METR-265 PO (16:08)
== END 2024-08-09 16:26 | disposition home or self-care (01) ==
LOC: EDBD 10:16 → M ED 10:16
DX: J44.9 Chronic obstructive pulmonary disease, unspecified (principal); K04.7 Periapical abscess without sinus; J45.909 Unspecified asthma, uncomplicated; Z79.51 Long term (current) use of inhaled steroids; Z79.2 Long term (current) use of antibiotics; Z79.52 Long term (current) use of systemic steroids; Z79.899 Other long term (current) drug therapy
CPT/HCPCS: 70487; 71045; 80048; 80076; 83605; 83735; 85025; 94640; 96374; 99284; J2543; Q9967

== ENCOUNTER → 2024-10-02 | Outpatient (REF) | payer OTHER ==
[~2024-10-02] MED LIST changes: +METR-265 PO
[2024-10-02 17:12] LABS: BLOOD UREA NITROGEN 13 MG/DL (9-23); CALCIUM LEVEL 9.8 MG/DL (8.3-10.6); CARBON DIOXIDE LEVEL 30 MMOL/L (20-31); CHLORIDE LEVEL 103 MMOL/L (98-107); CREATININE FOR GFR 0.81 MG/DL (0.70-1.30); GLOMERULAR FILTRATION RATE > 60.0 (>49); GLUCOSE, FASTING 93 MG/DL (74-106); POTASSIUM SERUM 3.8 MMOL/L (3.5-5.1); SODIUM LEVEL 141 MMOL/L (136-145)
== END ==
LOC: M LAB REF 16:18
PROVIDERS: ATTEND Nurse Practitioner Family
DX: J44.9 Chronic obstructive pulmonary disease, unspecified (principal); I50.9 Heart failure, unspecified

== ENCOUNTER 2025-02-13 09:40 | Emergency (ER) | payer OTHER ==
[~2025-02-13] VITALS: Ht 175.3 cm; Wt 81.8 kg
[~2025-02-13 09:40] MED LIST changes: -CLOT10TR; -CLOT10TR PO; +CLOT10TR11; +CLOT10TR11 PO
[2025-02-13 09:55] VITALS: BP 120/88; TEMP 98.3; O2SAT 93
[2025-02-13] MEDS: ACETAMINOPHEN 500 MG TAB PO ONE (12:13)
== END 2025-02-13 14:30 | disposition home or self-care (01) ==
LOC: M ED 09:40 → EDBD 09:40 → M ED 14:30
DX: M54.50 Low back pain, unspecified (principal); M17.11 Unilateral primary osteoarthritis, right knee; M19.012 Primary osteoarthritis, left shoulder; V28.01XA Electric (assisted) bicycle driver injured in noncollision transport accident in nontraffic accident, initial encounter; M48.061 Spinal stenosis, lumbar region without neurogenic claudication; M16.12 Unilateral primary osteoarthritis, left hip; J44.9 Chronic obstructive pulmonary disease, unspecified; F17.200 Nicotine dependence, unspecified, uncomplicated; Y92.410 Unspecified street and highway as the place of occurrence of the external cause; Y93.89 Activity, other specified; Y99.9 Unspecified external cause status; Z79.52 Long term (current) use of systemic steroids; Z79.2 Long term (current) use of antibiotics; Z79.899 Other long term (current) drug therapy

== ENCOUNTER 2025-03-09 06:14 | Emergency (ER) | payer OTHER ==
[~2025-03-09] VITALS: Ht 175.3 cm; Wt 84.0 kg
[2025-03-09 06:21] VITALS: TEMP 97.6
[2025-03-09] MEDS ORDERED: IBUP80TA PO (06:34)
[2025-03-09] MEDS ORDERED: DULO1CAP6 PO (06:34)
[2025-03-09 10:36] LABS: BASO # 0.0 10^3/uL (0.0-0.2); BASO % 0.6 % (0.0-1.0); EOS # 0.1 10^3/uL (0.0-0.5); EOS % 2.5 % (0.0-3.0); LYMPH # 1.6 10^3/uL (1.5-5.0); LYMPH % 33.1 % (24.0-44.0); MONO # 0.5 10^3/uL (0.0-0.8); MONO % 10.5 % (2.0-8.0); NEUTROPHILS # 2.5 10^3/uL (1.5-8.5); NEUTROPHILS % 53.1 % (36.0-66.0); PLATELET COUNT, AUTOMATED 341 10^3/uL (150-450)
[2025-03-09] MEDS: IPRATROPIUM 0.5 MG/ALBUTEROL 2.5 MG INH SOL UD 3 ML NEB ONE (10:38)
[2025-03-09 10:57] LABS: CALCIUM LEVEL 9.3 MG/DL (8.3-10.6); CARBON DIOXIDE LEVEL 29 MMOL/L (20-31); CHLORIDE LEVEL 102 MMOL/L (98-107); CREATININE FOR GFR 0.68 MG/DL (0.70-1.30); GLOMERULAR FILTRATION RATE > 90.0 (>49); MAGNESIUM LEVEL 1.9 MG/DL (1.8-2.4); POTASSIUM SERUM 4.2 MMOL/L (3.5-5.1); SODIUM LEVEL 142 MMOL/L (136-145)
[2025-03-09] MEDS ORDERED: ATOR1TAB21 PO (12:29)
[2025-03-09] MEDS ORDERED: FURO40TA2 PO (12:29)
[2025-03-09] MEDS ORDERED: HOME MED LIST COMPLETE! XX SCH (12:30)
[2025-03-09] MEDS ORDERED: ALBUTEROL SULFATE 2.5 MG/0.5 ML INH CONCENTRATE NEB SOLN INH PRN (13:00)
[2025-03-09] MEDS ORDERED: ALBUTEROL 90 MCG/ACT 8 GM HFA INHALER INH PRN (13:00)
[2025-03-09 13:31] VITALS: BP 128/66
[2025-03-09] MEDS: FUROSEMIDE 40 MG TAB PO SCH (13:31)
[2025-03-09 13:40] LABS: METHADONE URINE NEGATIVE (NEGATIVE)
[2025-03-09 13:41] LABS: AMPHETAMINES LEVEL URINE NEGATIVE (NEGATIVE); BARBITURATES URINE NEGATIVE (NEGATIVE); BENZODIAZEPINES URINE NEGATIVE (NEGATIVE); CANNABINOIDS URINE NEGATIVE (NEGATIVE); COCAINE METABOLITE URINE NEGATIVE (NEGATIVE); OPIATES URINE NEGATIVE (NEGATIVE); PHENCYCLIDINE URINE NEGATIVE (NEGATIVE)
[2025-03-09] MEDS: BUDESONIDE 0.5 MG/2 ML INHALATION SUSPENSION INH SCH (13:51)
[2025-03-09 14:29] LABS: ALT/SGPT 30 U/L (7.0-40); AST/SGOT 36 U/L (<34); CK-MB VALUE MASS 9.2 NG/ML (<3.6); CPK CREATINE PHOSPHOKINASE 567 U/L (46-171); MB/CK RELATIVE INDEX 1.62 (< OR =4)
[2025-03-09 14:32] LABS: KETONE, URINE AUTO RFX NEGATIVE (NEGATIVE); LEUKOCYTE ESTERASE UR AUTO RFX NEGATIVE (NEGATIVE); MUCUS, URINE RFX SMALL (NEGATIVE); NITRITE, URINE AUTO RFX NEGATIVE (NEGATIVE); RBC, URINE AUTO RFX 0 /HPF (0-3); SQUAM EPITHELIAL CELL UR AURFX 0 /HPF (0-6); WBC, URINE AUTO RFX 0 /HPF (0-3)
[2025-03-09 15:00] VITALS: O2SAT 94
[2025-03-09] MEDS ORDERED: COMBIVENT RESPIMAT 100-20 MCG INHALER 4 GM INH PRN (16:00)
[2025-03-09 17:05] VITALS: BP 140/90
[2025-03-09] MEDS ORDERED: ADVAIR HFA 115/21 MCG INHALER INH SCH (20:00)
[2025-03-10] MEDS ORDERED: TIOTROPIUM BROM 2.5MCG/ACTUATION 4GM INH INH SCH (08:00)
[2025-03-10] MEDS ORDERED: ENOXAPARIN 40 MG/0.4 ML SYRINGE (J1650 PER 10MG) SC SCH (09:00)
[2025-03-10] MEDS ORDERED: ATORVASTATIN 20 MG TAB PO SCH (09:00)
== END 2025-03-09 17:06 | disposition left against medical advice (07) ==
LOC: EDBD 06:14 → M ED 06:14
DX: R26.2 Difficulty in walking, not elsewhere classified (principal); J44.9 Chronic obstructive pulmonary disease, unspecified; J45.909 Unspecified asthma, uncomplicated; Z79.02 Long term (current) use of antithrombotics/antiplatelets; Z79.52 Long term (current) use of systemic steroids; Z79.899 Other long term (current) drug therapy; Z53.9 Procedure and treatment not carried out, unspecified reason

== ENCOUNTER 2025-04-08 10:58 | Emergency (ER) | payer OTHER ==
[~2025-04-08] VITALS: Ht 175.3 cm; Wt 74.1 kg
[~2025-04-08 10:58] MED LIST changes: +ATOR1TAB21 PO; +DULO1CAP6 PO; +FURO40TA2 PO; +IBUP80TA PO
[2025-04-08] MEDS: IPRATROPIUM 0.5 MG/ALBUTEROL 2.5 MG INH SOL UD 3 ML NEB ONE (11:55)
[2025-04-08] MEDS: ACETAMINOPHEN 325 MG TAB PO ONE (13:11)
[2025-04-08 13:13] VITALS: BP 111/73; O2SAT 92
[2025-04-08 13:26] VITALS: TEMP 97.7
== END 2025-04-08 13:25 | disposition home or self-care (01) ==
LOC: M ED 10:58
DX: J44.9 Chronic obstructive pulmonary disease, unspecified (principal); Z79.52 Long term (current) use of systemic steroids; Z79.02 Long term (current) use of antithrombotics/antiplatelets; Z79.899 Other long term (current) drug therapy

== ENCOUNTER 2025-04-14 06:47 | Emergency (ER) | payer OTHER ==
[~2025-04-14] VITALS: Ht 175.3 cm; Wt 84.0 kg
[2025-04-14 06:52] VITALS: TEMP 98
[2025-04-14] MEDS ORDERED: ALBUTEROL SULFATE 2.5 MG/0.5 ML INH CONCENTRATE NEB SOLN INH ONE (07:15)
[2025-04-14] MEDS: IPRATROPIUM 0.5 MG/ALBUTEROL 2.5 MG INH SOL UD 3 ML NEB ONE (07:44)
[2025-04-14 08:07] LABS: VENOUS BASE EXCESS 6.6 (-2.0-2.0); VENOUS HCO3 35.2 MMOL/L (23.0-27.0); VENOUS O2 SATURATION 55.2 % (60.0-80.0); VENOUS PARTIAL PRESSURE CO2 65.7 mmHg (38.0-50.0); VENOUS PARTIAL PRESSURE O2 30.9 mmHg (30.0-50.0); VENOUS PH 7.347 UNITS (7.330-7.430); VENOUS STANDARD HCO3 29.1 MMOL/L; VENOUS TOTAL CO2 37.2 MMOL/L (24.0-28.0)
[2025-04-14 08:08] LABS: BASO # 0.0 10^3/uL (0.0-0.2); BASO % 0.6 % (0.0-1.0); EOS # 0.1 10^3/uL (0.0-0.5); EOS % 2.4 % (0.0-3.0); LYMPH # 1.7 10^3/uL (1.5-5.0); LYMPH % 33.5 % (24.0-44.0); MONO # 0.4 10^3/uL (0.0-0.8); MONO % 7.1 % (2.0-8.0); NEUTROPHILS # 2.8 10^3/uL (1.5-8.5); NEUTROPHILS % 56.2 % (36.0-66.0); PLATELET COUNT, AUTOMATED 293 10^3/uL (150-450)
[2025-04-14 08:31] VITALS: BP 136/67; O2SAT 96
[2025-04-14 08:44] LABS: CK-MB VALUE MASS 17.2 NG/ML (<3.6)
[2025-04-14 08:47] LABS: ALT/SGPT 47 U/L (7.0-40); AST/SGOT 56 U/L (<34); CALCIUM LEVEL 10.2 MG/DL (8.3-10.6); CARBON DIOXIDE LEVEL 36 MMOL/L (20-31); CHLORIDE LEVEL 97 MMOL/L (98-107); CREATININE FOR GFR 0.86 MG/DL (0.70-1.30); GLOMERULAR FILTRATION RATE > 90.0 (>49); POTASSIUM SERUM 4.1 MMOL/L (3.5-5.1); SODIUM LEVEL 141 MMOL/L (136-145)
[2025-04-14 08:48] LABS: THYROXINE (T4) 6.7 UG/DL (4.5-10.9)
[2025-04-14] MEDS ORDERED: NYST-38 PO (08:48)
[2025-04-14] MEDS ORDERED: ALBU8.5H INH (08:48)
[2025-04-14] MEDS ORDERED: PRED20TA PO (08:48)
[2025-04-14] MEDS: NYSTATIN 500,000 UNITS/5 ML SUSP UDC SS ONE (08:54)
[2025-04-14] MEDS: FUROSEMIDE 40 MG TAB PO ONE (08:54)
[2025-04-14 08:58] LABS: CPK CREATINE PHOSPHOKINASE 1234 U/L (46-171); MB/CK RELATIVE INDEX 1.39 (< OR =4)
== END 2025-04-14 09:07 | disposition left against medical advice (07) ==
LOC: EDBD 06:47 → M ED 06:47
DX: J44.9 Chronic obstructive pulmonary disease, unspecified (principal); E55.9 Vitamin D deficiency, unspecified; F41.9 Anxiety disorder, unspecified; F32.A Depression, unspecified; I10 Essential (primary) hypertension; F14.11 Cocaine abuse, in remission; Z86.79 Personal history of other diseases of the circulatory system; Z87.891 Personal history of nicotine dependence; Z79.52 Long term (current) use of systemic steroids; Z79.02 Long term (current) use of antithrombotics/antiplatelets; Z79.899 Other long term (current) drug therapy; Z53.9 Procedure and treatment not carried out, unspecified reason
CPT/HCPCS: 80047; 80048; 80076; 82550; 82553; 82803; 83605; 83880; 84145; 84436; 84443; 84484; 85025; 87040; 87486; 87581; 87633; 87798; 93005; 93041; 94640; 94760; 96374; 99284; J2919

== ENCOUNTER 2025-04-27 09:07 | Emergency (ER) | payer OTHER ==
[~2025-04-27 09:07] MED LIST changes: +ALBU8.5H INH
[2025-04-27 09:13] VITALS: TEMP 96.3
[2025-04-27 09:36] VITALS: BP 147/84; O2SAT 95
== END 2025-04-27 09:45 | disposition home or self-care (01) ==
LOC: EDBD 09:07 → M ED 09:07
DX: J44.1 Chronic obstructive pulmonary disease with (acute) exacerbation (principal); F41.9 Anxiety disorder, unspecified; F19.10 Other psychoactive substance abuse, uncomplicated; F22 Delusional disorders; R00.0 Tachycardia, unspecified; F17.200 Nicotine dependence, unspecified, uncomplicated; Z79.52 Long term (current) use of systemic steroids; Z79.02 Long term (current) use of antithrombotics/antiplatelets; Z79.899 Other long term (current) drug therapy

== ENCOUNTER 2025-05-13 23:24 | Emergency (ER) | payer OTHER ==
[~2025-05-13] VITALS: Ht 175.3 cm; Wt 94.7 kg
[2025-05-13 23:33] VITALS: TEMP 97.2
[2025-05-13] MEDS: IPRATROPIUM 0.5 MG/ALBUTEROL 2.5 MG INH SOL UD 3 ML NEB ONE (23:42)
[2025-05-13] MEDS: IPRATROPIUM 0.5 MG/ALBUTEROL 2.5 MG INH SOL UD 3 ML NEB STA (23:42)
[2025-05-14] MEDS ORDERED: LEVALBUTEROL 1.25 MG 0.5ML CONCENTRATE NEB NEB ONE (00:05)
[2025-05-14 00:10] LABS: BASO # 0.1 10^3/uL (0.0-0.2); BASO % 0.9 % (0.0-1.0); EOS # 0.2 10^3/uL (0.0-0.5); EOS % 2.6 % (0.0-3.0); LYMPH # 1.7 10^3/uL (1.5-5.0); LYMPH % 29.0 % (24.0-44.0); MONO # 0.5 10^3/uL (0.0-0.8); MONO % 9.1 % (2.0-8.0); NEUTROPHILS # 3.4 10^3/uL (1.5-8.5); NEUTROPHILS % 58.2 % (36.0-66.0); PLATELET COUNT, AUTOMATED 282 10^3/uL (150-450)
[2025-05-14 00:26] LABS: ALT/SGPT 46 U/L (7.0-40); AST/SGOT 59 U/L (<34); CALCIUM LEVEL 9.5 MG/DL (8.3-10.6); CARBON DIOXIDE LEVEL 31 MMOL/L (20-31); CHLORIDE LEVEL 101 MMOL/L (98-107); CK-MB VALUE MASS 25.1 NG/ML (<3.6); CREATININE FOR GFR 0.86 MG/DL (0.70-1.30); GLOMERULAR FILTRATION RATE > 90.0 (>49); POTASSIUM SERUM 3.8 MMOL/L (3.5-5.1); SODIUM LEVEL 141 MMOL/L (136-145)
[2025-05-14 01:09] LABS: CPK CREATINE PHOSPHOKINASE 1513 U/L (46-171); MB/CK RELATIVE INDEX 1.65 (< OR =4)
[2025-05-14 01:35] VITALS: BP 139/94
[2025-05-14] MEDS: NS (Normal Saline) 0.9% 1,000 ML IV ONE (01:35)
[2025-05-14 03:15] VITALS: O2SAT 91
[2025-05-14] MEDS ORDERED: AZIT-12 PO (03:49)
[2025-05-14] MEDS ORDERED: FLUT1BLS8 INH (03:49)
[2025-05-14 04:13] LABS: CK-MB VALUE MASS 24.1 NG/ML (<3.6)
[2025-05-14 04:23] LABS: CPK CREATINE PHOSPHOKINASE 1399.0 U/L (46-171); MB/CK RELATIVE INDEX 1.72 (< OR =4)
[2025-05-14] MEDS: AZITHROMYCIN 250 MG TABLET PO ONE (04:36)
== END 2025-05-14 04:57 | disposition home or self-care (01) ==
LOC: M ED 23:24
DX: R00.2 Palpitations (principal); I49.3 Ventricular premature depolarization; F41.9 Anxiety disorder, unspecified; Z88.0 Allergy status to penicillin; Z88.1 Allergy status to other antibiotic agents; Z88.2 Allergy status to sulfonamides; Z88.7 Allergy status to serum and vaccine; Z79.899 Other long term (current) drug therapy

== ENCOUNTER 2025-05-19 18:18 | Emergency (ER) | payer OTHER ==
[~2025-05-19 18:18] MED LIST changes: +AZIT-12 PO
[2025-05-19 18:31] VITALS: BP 143/70; TEMP 97.6; O2SAT 96
[2025-05-19 19:06] LABS: BASO # 0.0 10^3/uL (0.0-0.2); BASO % 0.4 % (0.0-1.0); EOS # 0.1 10^3/uL (0.0-0.5); EOS % 1.3 % (0.0-3.0); LYMPH # 2.1 10^3/uL (1.5-5.0); LYMPH % 37.9 % (24.0-44.0); MONO # 0.6 10^3/uL (0.0-0.8); MONO % 10.7 % (2.0-8.0); NEUTROPHILS # 2.7 10^3/uL (1.5-8.5); NEUTROPHILS % 49.5 % (36.0-66.0); PLATELET COUNT, AUTOMATED 253 10^3/uL (150-450)
[2025-05-19 19:31] LABS: ALT/SGPT 39 U/L (7.0-40); AST/SGOT 32 U/L (<34); CALCIUM LEVEL 9.4 MG/DL (8.3-10.6); CARBON DIOXIDE LEVEL 31 MMOL/L (20-31); CHLORIDE LEVEL 102 MMOL/L (98-107); CREATININE FOR GFR 0.90 MG/DL (0.70-1.30); GLOMERULAR FILTRATION RATE > 90.0 (>49); POTASSIUM SERUM 3.9 MMOL/L (3.5-5.1); SODIUM LEVEL 138 MMOL/L (136-145)
== END 2025-05-19 19:20 | disposition left against medical advice (07) ==
LOC: M ED 18:18
DX: Z53.21 Procedure and treatment not carried out due to patient leaving prior to being seen by health care provider (principal)

== ENCOUNTER 2025-06-05 01:27 | Emergency (ER) | payer OTHER ==
[2025-06-05] MEDS: IPRATROPIUM 0.5 MG/ALBUTEROL 2.5 MG INH SOL UD 3 ML NEB PRN (02:00)
[2025-06-05 02:54] LABS: VENOUS BASE EXCESS 3.5 (-2.0-2.0); VENOUS HCO3 28.2 MMOL/L (23.0-27.0); VENOUS O2 SATURATION 98.5 % (60.0-80.0); VENOUS PARTIAL PRESSURE CO2 43.2 mmHg (38.0-50.0); VENOUS PARTIAL PRESSURE O2 136.8 mmHg (30.0-50.0); VENOUS PH 7.433 UNITS (7.330-7.430); VENOUS STANDARD HCO3 27.6 MMOL/L; VENOUS TOTAL CO2 29.6 MMOL/L (24.0-28.0)
[2025-06-05 02:56] LABS: BASO # 0.0 10^3/uL (0.0-0.2); BASO % 0.1 % (0.0-1.0); EOS # 0.0 10^3/uL (0.0-0.5); EOS % 0.4 % (0.0-3.0); LYMPH # 2.0 10^3/uL (1.5-5.0); LYMPH % 19.3 % (24.0-44.0); MONO # 0.8 10^3/uL (0.0-0.8); MONO % 7.5 % (2.0-8.0); NEUTROPHILS # 7.5 10^3/uL (1.5-8.5); NEUTROPHILS % 72.3 % (36.0-66.0); PLATELET COUNT, AUTOMATED 281 10^3/uL (150-450)
[2025-06-05 03:21] LABS: ALT/SGPT 37 U/L (7.0-40); AST/SGOT 36 U/L (<34); CALCIUM LEVEL 9.2 MG/DL (8.3-10.6); CARBON DIOXIDE LEVEL 29 MMOL/L (20-31); CHLORIDE LEVEL 105 MMOL/L (98-107); CK-MB VALUE MASS 15.5 NG/ML (<3.6); CREATININE FOR GFR 0.83 MG/DL (0.70-1.30); GLOMERULAR FILTRATION RATE > 90.0 (>49); POTASSIUM SERUM 3.9 MMOL/L (3.5-5.1); SODIUM LEVEL 145 MMOL/L (136-145)
[2025-06-05 03:25] LABS: CPK CREATINE PHOSPHOKINASE 506 U/L (46-171); MB/CK RELATIVE INDEX 3.06 (< OR =4)
[2025-06-05 04:21] LABS: CK-MB VALUE MASS 13.5 NG/ML (<3.6)
[2025-06-05 04:25] LABS: CPK CREATINE PHOSPHOKINASE 484.0 U/L (46-171); MB/CK RELATIVE INDEX 2.78 (< OR =4)
[2025-06-05 05:14] VITALS: BP 153/80; TEMP 98.4; O2SAT 90
== END 2025-06-05 05:15 | disposition home or self-care (01) ==
LOC: M ED 01:27
DX: J44.1 Chronic obstructive pulmonary disease with (acute) exacerbation (principal); R00.0 Tachycardia, unspecified; Z87.891 Personal history of nicotine dependence; Z79.52 Long term (current) use of systemic steroids; Z79.899 Other long term (current) drug therapy; Z79.02 Long term (current) use of antithrombotics/antiplatelets; Z79.2 Long term (current) use of antibiotics

== ENCOUNTER 2025-06-27 20:42 | Emergency (ER) | payer OTHER ==
[~2025-06-27] VITALS: Ht 175.3 cm; Wt 78.6 kg
[2025-06-27 20:51] VITALS: TEMP 97.9
[2025-06-27] MEDS: IPRATROPIUM 0.5 MG/ALBUTEROL 2.5 MG INH SOL UD 3 ML NEB ONE ×2 (22:37→22:55)
[2025-06-27 23:11] LABS: CK-MB VALUE MASS 11.7 NG/ML (<3.6)
[2025-06-27 23:16] VITALS: BP 137/87
[2025-06-27 23:32] LABS: CPK CREATINE PHOSPHOKINASE 699.0 U/L (46-171); MB/CK RELATIVE INDEX 1.67 (< OR =4)
[2025-06-27 23:45] VITALS: O2SAT 95
[2025-06-28 00:43] LABS: BASO # 0.0 10^3/uL (0.0-0.2); BASO % 0.5 % (0.0-1.0); EOS # 0.1 10^3/uL (0.0-0.5); EOS % 1.4 % (0.0-3.0); LYMPH # 1.7 10^3/uL (1.5-5.0); LYMPH % 29.5 % (24.0-44.0); MONO # 0.6 10^3/uL (0.0-0.8); MONO % 9.3 % (2.0-8.0); NEUTROPHILS # 3.5 10^3/uL (1.5-8.5); NEUTROPHILS % 59.1 % (36.0-66.0); PLATELET COUNT, AUTOMATED 259 10^3/uL (150-450)
[2025-06-28 01:15] LABS: CK-MB VALUE MASS 11.8 NG/ML (<3.6)
[2025-06-28 01:19] LABS: CPK CREATINE PHOSPHOKINASE 711.0 U/L (46-171); MB/CK RELATIVE INDEX 1.65 (< OR =4)
== END 2025-06-28 01:03 | disposition left against medical advice (07) ==
LOC: M ED 20:42
DX: Z53.21 Procedure and treatment not carried out due to patient leaving prior to being seen by health care provider (principal)

== ENCOUNTER 2025-07-02 17:25 | Emergency (ER) | payer OTHER ==
[~2025-07-02] VITALS: Ht 175.3 cm; Wt 92.2 kg
[2025-07-02] MEDS: MAALOX 30 ML SUSP *UDC PO ONE (18:16)
[2025-07-02] MEDS: LIDOCAINE VISCOUS 2% SOLN 15 ML UDC PO ONE (18:16)
[2025-07-02] MEDS: ALBUTEROL SULFATE 2.5 MG/0.5 ML INH CONCENTRATE NEB SOLN INH ONE (18:17)
[2025-07-02] MEDS: IPRATROPIUM 0.5 MG/ALBUTEROL 2.5 MG INH SOL UD 3 ML NEB ONE (18:17)
[2025-07-02 18:20] LABS: VENOUS BASE EXCESS 1.0 (-2.0-2.0); VENOUS HCO3 27.9 MMOL/L (23.0-27.0); VENOUS O2 SATURATION 89.4 % (60.0-80.0); VENOUS PARTIAL PRESSURE CO2 53.3 mmHg (38.0-50.0); VENOUS PARTIAL PRESSURE O2 60.8 mmHg (30.0-50.0); VENOUS PH 7.337 UNITS (7.330-7.430); VENOUS STANDARD HCO3 25.1 MMOL/L; VENOUS TOTAL CO2 29.6 MMOL/L (24.0-28.0)
[2025-07-02 18:27] LABS: BASO # 0.1 10^3/uL (0.0-0.2); BASO % 0.7 % (0.0-1.0); EOS # 0.1 10^3/uL (0.0-0.5); EOS % 1.8 % (0.0-3.0); LYMPH # 1.7 10^3/uL (1.5-5.0); LYMPH % 23.8 % (24.0-44.0); MONO # 0.8 10^3/uL (0.0-0.8); MONO % 10.5 % (2.0-8.0); NEUTROPHILS # 4.6 10^3/uL (1.5-8.5); NEUTROPHILS % 62.9 % (36.0-66.0); PLATELET COUNT, AUTOMATED 301 10^3/uL (150-450)
[2025-07-02 18:46] LABS: ALT/SGPT 36 U/L (7.0-40); AST/SGOT 38 U/L (<34); CALCIUM LEVEL 9.4 MG/DL (8.3-10.6); CARBON DIOXIDE LEVEL 29 MMOL/L (20-31); CHLORIDE LEVEL 101 MMOL/L (98-107); CREATININE FOR GFR 0.71 MG/DL (0.70-1.30); GLOMERULAR FILTRATION RATE > 90.0 (>49); POTASSIUM SERUM 4.1 MMOL/L (3.5-5.1); SODIUM LEVEL 140 MMOL/L (136-145)
[2025-07-02 18:55] LABS: INR 0.86
[2025-07-02 19:13] LABS: HIV 1&2 SCREEN NEGATIVE (NEGATIVE)
[2025-07-02 20:46] VITALS: O2SAT 97
[2025-07-02 21:00] VITALS: BP 153/92
[2025-07-02] MEDS ORDERED: COMBAER6 INH (21:31)
[2025-07-02] MEDS ORDERED: PRED20TA PO (21:31)
[2025-07-02] MEDS ORDERED: CHLO1.4S7 MT (21:31)
[2025-07-02 21:45] VITALS: TEMP 97
== END 2025-07-02 21:50 | disposition home or self-care (01) ==
LOC: EDBD 17:25 → M ED 17:25
DX: J44.1 Chronic obstructive pulmonary disease with (acute) exacerbation (principal); Z87.891 Personal history of nicotine dependence; Z79.52 Long term (current) use of systemic steroids; Z79.899 Other long term (current) drug therapy; Z79.2 Long term (current) use of antibiotics; Z79.02 Long term (current) use of antithrombotics/antiplatelets

== ENCOUNTER 2025-07-07 16:35 | Emergency (ER) | payer OTHER ==
[~2025-07-07 16:35] MED LIST changes: +CHLO1.4S7 MT
[2025-07-07 17:10] LABS: VENOUS BASE EXCESS 1.9 (-2.0-2.0); VENOUS HCO3 27.8 MMOL/L (23.0-27.0); VENOUS O2 SATURATION 99.3 % (60.0-80.0); VENOUS PARTIAL PRESSURE CO2 48.1 mmHg (38.0-50.0); VENOUS PARTIAL PRESSURE O2 193.7 mmHg (30.0-50.0); VENOUS PH 7.380 UNITS (7.330-7.430); VENOUS STANDARD HCO3 26.2 MMOL/L; VENOUS TOTAL CO2 29.3 MMOL/L (24.0-28.0)
[2025-07-07 17:22] LABS: BASO # 0.0 10^3/uL (0.0-0.2); BASO % 0.1 % (0.0-1.0); EOS # 0.0 10^3/uL (0.0-0.5); EOS % 0.0 % (0.0-3.0); LYMPH # 0.9 10^3/uL (1.5-5.0); LYMPH % 9.3 % (24.0-44.0); MONO # 0.8 10^3/uL (0.0-0.8); MONO % 8.0 % (2.0-8.0); NEUTROPHILS # 7.7 10^3/uL (1.5-8.5); NEUTROPHILS % 82.1 % (36.0-66.0); PLATELET COUNT, AUTOMATED 357 10^3/uL (150-450)
[2025-07-07 17:37] LABS: CK-MB VALUE MASS 10.3 NG/ML (<3.6)
[2025-07-07 17:38] LABS: ALT/SGPT 41 U/L (7.0-40); AST/SGOT 27 U/L (<34); CALCIUM LEVEL 9.4 MG/DL (8.3-10.6); CARBON DIOXIDE LEVEL 29 MMOL/L (20-31); CHLORIDE LEVEL 106 MMOL/L (98-107); CPK CREATINE PHOSPHOKINASE 255 U/L (46-171); CREATININE FOR GFR 0.78 MG/DL (0.70-1.30); GLOMERULAR FILTRATION RATE > 90.0 (>49); MB/CK RELATIVE INDEX 4.03 (< OR =4); POTASSIUM SERUM 3.9 MMOL/L (3.5-5.1); SODIUM LEVEL 144 MMOL/L (136-145)
[2025-07-07] MEDS ORDERED: ALBU2.5V10 NEB (18:03)
[2025-07-07] MEDS: IPRATROPIUM 0.5 MG/ALBUTEROL 2.5 MG INH SOL UD 3 ML NEB ONE (18:12)
[2025-07-07 19:00] VITALS: BP 159/73; TEMP 97; O2SAT 98
== END 2025-07-07 19:26 | disposition home or self-care (01) ==
LOC: M ED 16:35 → EDBD 16:35 → M ED 19:26
DX: Z76.0 Encounter for issue of repeat prescription (principal); J44.9 Chronic obstructive pulmonary disease, unspecified; Z79.51 Long term (current) use of inhaled steroids

== ENCOUNTER 2025-07-09 18:11 | Emergency (ER) | payer OTHER ==
[~2025-07-09] VITALS: Ht 175.3 cm; Wt 83.0 kg
[2025-07-09 18:24] VITALS: TEMP 96.7
[2025-07-09 18:45] VITALS: BP 172/84; O2SAT 96
[2025-07-09 18:48] LABS: BASO # 0.0 10^3/uL (0.0-0.2); BASO % 0.1 % (0.0-1.0); EOS # 0.0 10^3/uL (0.0-0.5); EOS % 0.2 % (0.0-3.0); LYMPH # 2.4 10^3/uL (1.5-5.0); LYMPH % 29.3 % (24.0-44.0); MONO # 1.1 10^3/uL (0.0-0.8); MONO % 13.8 % (2.0-8.0); NEUTROPHILS # 4.5 10^3/uL (1.5-8.5); NEUTROPHILS % 55.9 % (36.0-66.0); PLATELET COUNT, AUTOMATED 315 10^3/uL (150-450)
[2025-07-09 19:21] LABS: ALT/SGPT 43 U/L (7.0-40); AST/SGOT 37 U/L (<34); CALCIUM LEVEL 8.6 MG/DL (8.3-10.6); CARBON DIOXIDE LEVEL 32 MMOL/L (20-31); CHLORIDE LEVEL 105 MMOL/L (98-107); CREATININE FOR GFR 0.69 MG/DL (0.70-1.30); GLOMERULAR FILTRATION RATE > 90.0 (>49); POTASSIUM SERUM 4.0 MMOL/L (3.5-5.1); SODIUM LEVEL 146 MMOL/L (136-145)
== END 2025-07-09 19:14 | disposition left against medical advice (07) ==
LOC: EDBD 18:11 → M ED 18:11
DX: Z53.21 Procedure and treatment not carried out due to patient leaving prior to being seen by health care provider (principal)

== ENCOUNTER 2025-07-27 08:22 | Emergency (ER) | payer OTHER ==
[~2025-07-27] VITALS: Ht 175.3 cm; Wt 83.2 kg
[2025-07-27 09:48] LABS: BASO # 0.0 10^3/uL (0.0-0.2); BASO % 0.5 % (0.0-1.0); EOS # 0.1 10^3/uL (0.0-0.5); EOS % 1.3 % (0.0-3.0); LYMPH # 1.2 10^3/uL (1.5-5.0); LYMPH % 19.2 % (24.0-44.0); MONO # 0.4 10^3/uL (0.0-0.8); MONO % 7.1 % (2.0-8.0); NEUTROPHILS # 4.4 10^3/uL (1.5-8.5); NEUTROPHILS % 71.7 % (36.0-66.0); PLATELET COUNT, AUTOMATED 269 10^3/uL (150-450)
[2025-07-27 10:06] LABS: CK-MB VALUE MASS 9.3 NG/ML (<3.6)
[2025-07-27 10:09] LABS: ALT/SGPT 29 U/L (7.0-40); AST/SGOT 37 U/L (<34); CALCIUM LEVEL 9.4 MG/DL (8.3-10.6); CARBON DIOXIDE LEVEL 33 MMOL/L (20-31); CHLORIDE LEVEL 103 MMOL/L (98-107); CREATININE FOR GFR 0.78 MG/DL (0.70-1.30); GLOMERULAR FILTRATION RATE > 90.0 (>49); POTASSIUM SERUM 4.8 MMOL/L (3.5-5.1); SODIUM LEVEL 143 MMOL/L (136-145)
[2025-07-27] MEDS: IPRATROPIUM 0.5 MG/ALBUTEROL 2.5 MG INH SOL UD 3 ML NEB ONE (10:11)
[2025-07-27 10:14] LABS: CPK CREATINE PHOSPHOKINASE 348 U/L (46-171); MB/CK RELATIVE INDEX 2.67 (< OR =4)
[2025-07-27 11:09] LABS: CK-MB VALUE MASS 7.8 NG/ML (<3.6)
[2025-07-27 11:21] LABS: CPK CREATINE PHOSPHOKINASE 319.0 U/L (46-171); MB/CK RELATIVE INDEX 2.44 (< OR =4)
[2025-07-27 12:00] VITALS: BP 122/84; TEMP 97.7; O2SAT 98
[2025-07-27] MEDS ORDERED: PRED20TA PO (12:36)
[2025-07-27] MEDS ORDERED: AZIT-12 PO (12:37)
[2025-07-27] MEDS ORDERED: IPRA0.00 INH (12:38)
[2025-07-27] MEDS: ACETAMINOPHEN 500 MG TAB PO ONE (12:40)
== END 2025-07-27 13:04 | disposition home or self-care (01) ==
LOC: EDBD 08:22 → M ED 08:22
DX: J44.1 Chronic obstructive pulmonary disease with (acute) exacerbation (principal); S43.402A Unspecified sprain of left shoulder joint, initial encounter; M25.512 Pain in left shoulder; W01.198A Fall on same level from slipping, tripping and stumbling with subsequent striking against other object, initial encounter; M50.320 Other cervical disc degeneration, mid-cervical region, unspecified level; I65.23 Occlusion and stenosis of bilateral carotid arteries; E78.5 Hyperlipidemia, unspecified; Z79.52 Long term (current) use of systemic steroids; Z79.899 Other long term (current) drug therapy; Z79.2 Long term (current) use of antibiotics; Y92.009 Unspecified place in unspecified non-institutional (private) residence as the place of occurrence of the external cause; Y93.89 Activity, other specified; Y99.9 Unspecified external cause status
CPT/HCPCS: 70450; 71046; 72125; 73030; 73060; 73080; 80048; 80076; 82550; 82553; 83880; 84484; 85025; 87486; 87581; 87633; 87798; 93005; 93041; 94640; 94760; 96374; 99285; J2919

== ENCOUNTER 2025-08-05 18:49 | Emergency (ER) | payer OTHER ==
[~2025-08-05] VITALS: Ht 175.3 cm; Wt 86.4 kg
[2025-08-05 23:24] VITALS: TEMP 97.6
[2025-08-06] MEDS: IPRATROPIUM 0.5 MG/ALBUTEROL 2.5 MG INH SOL UD 3 ML NEB PRN (01:58)
[2025-08-06 02:09] LABS: VENOUS BASE EXCESS 5.0 (-2.0-2.0); VENOUS HCO3 31.5 MMOL/L (23.0-27.0); VENOUS O2 SATURATION 95.0 % (60.0-80.0); VENOUS PARTIAL PRESSURE CO2 53.4 mmHg (38.0-50.0); VENOUS PARTIAL PRESSURE O2 78.2 mmHg (30.0-50.0); VENOUS PH 7.389 UNITS (7.330-7.430); VENOUS STANDARD HCO3 28.9 MMOL/L; VENOUS TOTAL CO2 33.2 MMOL/L (24.0-28.0)
[2025-08-06 02:13] LABS: BASO # 0.0 10^3/uL (0.0-0.2); BASO % 0.3 % (0.0-1.0); EOS # 0.1 10^3/uL (0.0-0.5); EOS % 0.9 % (0.0-3.0); LYMPH # 3.0 10^3/uL (1.5-5.0); LYMPH % 42.4 % (24.0-44.0); MONO # 0.6 10^3/uL (0.0-0.8); MONO % 8.8 % (2.0-8.0); NEUTROPHILS # 3.3 10^3/uL (1.5-8.5); NEUTROPHILS % 47.3 % (36.0-66.0); PLATELET COUNT, AUTOMATED 349 10^3/uL (150-450)
[2025-08-06 02:38] LABS: CPK CREATINE PHOSPHOKINASE 180 U/L (46-171)
[2025-08-06 02:39] LABS: ALT/SGPT 21 U/L (7.0-40); AST/SGOT 22 U/L (<34); CALCIUM LEVEL 9.6 MG/DL (8.3-10.6); CARBON DIOXIDE LEVEL 30 MMOL/L (20-31); CHLORIDE LEVEL 101 MMOL/L (98-107); CK-MB VALUE MASS 6.7 NG/ML (<3.6); CREATININE FOR GFR 0.71 MG/DL (0.70-1.30); GLOMERULAR FILTRATION RATE > 90.0 (>49); MB/CK RELATIVE INDEX 3.72 (< OR =4); POTASSIUM SERUM 4.0 MMOL/L (3.5-5.1); SODIUM LEVEL 140 MMOL/L (136-145)
[2025-08-06 02:41] LABS: THYROXINE (T4) 8.8 UG/DL (4.5-10.9)
[2025-08-06] MEDS ORDERED: ISOVUE-370 76% 100 ML VIAL As Ordered ONE (02:42)
[2025-08-06 03:15] VITALS: BP 133/82
[2025-08-06 03:19] VITALS: O2SAT 94
[2025-08-06 03:44] LABS: CK-MB VALUE MASS 6.0 NG/ML (<3.6)
[2025-08-06 03:53] LABS: CPK CREATINE PHOSPHOKINASE 160.0 U/L (46-171); MB/CK RELATIVE INDEX 3.75 (< OR =4)
[2025-08-15] MEDS ORDERED: TREL1AER PO (15:45)
[2025-08-15] MEDS ORDERED: IPRA0.00 NEB (15:45)
[2025-08-15] MEDS ORDERED: PRED20TA PO (15:45)
== END 2025-08-06 07:00 | disposition left against medical advice (07) ==
LOC: EDBD 18:49 → M ED 18:49
DX: R06.02 Shortness of breath (principal); I10 Essential (primary) hypertension; J44.9 Chronic obstructive pulmonary disease, unspecified; M41.9 Scoliosis, unspecified; Z79.52 Long term (current) use of systemic steroids; Z79.899 Other long term (current) drug therapy; Z79.02 Long term (current) use of antithrombotics/antiplatelets; Z79.2 Long term (current) use of antibiotics; Z53.9 Procedure and treatment not carried out, unspecified reason
CPT/HCPCS: 71275; 80048; 80076; 82550; 82553; 82803; 83605; 83880; 84436; 84443; 84484; 85025; 87486; 87581; 87633; 87798; 93005; 93041; 94640; 94760; 96374; 99285; J2919; Q9967